=== PATIENT | female | born 1980 | race Hispanic/Latino ===

== ENCOUNTER 2018-09-11 09:21 | Outpatient (CLI) | payer MEDICARE | END 2018-09-11 09:22 | disposition home or self-care (01) | LOC: WOUND 09:21 → MERGE 09:21 → WOUND 09:22 | PROVIDERS: ATTEND Surgery | DX: E11.622 Type 2 diabetes mellitus with other skin ulcer (principal); L89.314 Pressure ulcer of right buttock, stage 4; L98.412 Non-pressure chronic ulcer of buttock with fat layer exposed; L89.152 Pressure ulcer of sacral region, stage 2; L98.491 Non-pressure chronic ulcer of skin of other sites limited to breakdown of skin; I10 Essential (primary) hypertension; G80.9 Cerebral palsy, unspecified; E66.9 Obesity, unspecified; Z68.29 Body mass index [BMI] 29.0-29.9, adult ==

== ENCOUNTER 2018-09-18 08:57 | Outpatient (CLI) | payer MEDICARE | END 2018-09-18 08:58 | disposition home or self-care (01) | LOC: WOUND 08:57 → MERGE 08:57 → WOUND 08:58 | PROVIDERS: ATTEND Surgery | DX: E11.622 Type 2 diabetes mellitus with other skin ulcer (principal); L89.314 Pressure ulcer of right buttock, stage 4; L98.412 Non-pressure chronic ulcer of buttock with fat layer exposed; L89.152 Pressure ulcer of sacral region, stage 2; L98.491 Non-pressure chronic ulcer of skin of other sites limited to breakdown of skin; I10 Essential (primary) hypertension; G80.9 Cerebral palsy, unspecified; E66.9 Obesity, unspecified; Z68.29 Body mass index [BMI] 29.0-29.9, adult ==

== ENCOUNTER 2018-09-25 09:13 | Outpatient (CLI) | payer MEDICARE | END 2018-09-25 09:14 | disposition home or self-care (01) | LOC: MERGE 09:13 → WOUND 09:13 | PROVIDERS: ATTEND Surgery | DX: E11.622 Type 2 diabetes mellitus with other skin ulcer (principal); L89.313 Pressure ulcer of right buttock, stage 3; L98.412 Non-pressure chronic ulcer of buttock with fat layer exposed; L89.152 Pressure ulcer of sacral region, stage 2; L98.492 Non-pressure chronic ulcer of skin of other sites with fat layer exposed; I10 Essential (primary) hypertension; G80.9 Cerebral palsy, unspecified | CPT/HCPCS: 97605; 97606 ==

== ENCOUNTER 2018-10-02 09:07 | Outpatient (CLI) | payer MEDICARE ==
[2018-10-02] MEDS ORDERED: SILVER NITRATE TP ONE ×2 (09:51→10:06)
[2018-10-02] MEDS ORDERED: DAKIN'S FULL STRENGTH TP ONE (10:06)
== END 2018-10-02 09:08 | disposition home or self-care (01) ==
LOC: WOUND 09:07 → MERGE 09:07 → WOUND 09:08
PROVIDERS: ATTEND Surgery
DX: E11.622 Type 2 diabetes mellitus with other skin ulcer (principal); L89.314 Pressure ulcer of right buttock, stage 4; L89.154 Pressure ulcer of sacral region, stage 4; L98.412 Non-pressure chronic ulcer of buttock with fat layer exposed; L98.492 Non-pressure chronic ulcer of skin of other sites with fat layer exposed; I10 Essential (primary) hypertension; G80.9 Cerebral palsy, unspecified
CPT/HCPCS: 87075; 87076; 87116; 87186; 97605

== ENCOUNTER 2018-10-09 09:17 | Outpatient (CLI) | payer MEDICARE ==
[2018-10-09] MEDS ORDERED: DAKIN'S FULL STRENGTH TP ONE (11:00)
== END 2018-10-09 09:18 | disposition home or self-care (01) ==
LOC: WOUND 09:17 → MERGE 09:17 → WOUND 09:18
PROVIDERS: ATTEND Surgery
DX: E11.622 Type 2 diabetes mellitus with other skin ulcer (principal); L89.152 Pressure ulcer of sacral region, stage 2; L98.492 Non-pressure chronic ulcer of skin of other sites with fat layer exposed; L89.314 Pressure ulcer of right buttock, stage 4; L98.411 Non-pressure chronic ulcer of buttock limited to breakdown of skin; I10 Essential (primary) hypertension; G80.9 Cerebral palsy, unspecified
CPT/HCPCS: 97605

== ENCOUNTER 2018-10-30 09:18 | Outpatient (CLI) | payer MEDICARE | END 2018-10-30 09:19 | disposition home or self-care (01) | LOC: WOUND 09:18 | PROVIDERS: ATTEND Surgery | DX: E11.622 Type 2 diabetes mellitus with other skin ulcer (principal); L89.314 Pressure ulcer of right buttock, stage 4; L98.412 Non-pressure chronic ulcer of buttock with fat layer exposed; L89.152 Pressure ulcer of sacral region, stage 2; L98.492 Non-pressure chronic ulcer of skin of other sites with fat layer exposed; I10 Essential (primary) hypertension; G80.9 Cerebral palsy, unspecified ==

== ENCOUNTER 2018-11-06 09:14 | Outpatient (CLI) | payer MEDICARE | END 2018-11-06 09:15 | disposition home or self-care (01) | LOC: WOUND 09:14 | PROVIDERS: ATTEND Surgery | DX: E11.622 Type 2 diabetes mellitus with other skin ulcer (principal); L89.314 Pressure ulcer of right buttock, stage 4; L98.412 Non-pressure chronic ulcer of buttock with fat layer exposed; L89.152 Pressure ulcer of sacral region, stage 2; L98.492 Non-pressure chronic ulcer of skin of other sites with fat layer exposed; I10 Essential (primary) hypertension; G80.9 Cerebral palsy, unspecified ==

== ENCOUNTER 2018-11-13 08:58 | Outpatient (CLI) | payer MEDICARE | END 2018-11-13 08:59 | disposition home or self-care (01) | LOC: WOUND 08:58 | PROVIDERS: ATTEND Surgery | DX: E11.622 Type 2 diabetes mellitus with other skin ulcer (principal); L89.314 Pressure ulcer of right buttock, stage 4; L98.412 Non-pressure chronic ulcer of buttock with fat layer exposed; L89.152 Pressure ulcer of sacral region, stage 2; L98.492 Non-pressure chronic ulcer of skin of other sites with fat layer exposed; I10 Essential (primary) hypertension; G80.9 Cerebral palsy, unspecified | CPT/HCPCS: 97605 ==

== ENCOUNTER 2019-01-12 07:38 | Day surgery (SDC) | payer MEDICARE ==
[2019-01-12] MEDS ORDERED: NACL 0.9% 1000 ML 1,000 ML IV SCH (10:45)
--- NOTE | 2019-01-12 10:59 | Anesthesia Day of Surgery ---
Anesthesia Day of Surgery - Day of Surgery Patient Examined: Yes Patient H&P Reviewed: Yes Patient is NPO: Yes Beta Blockers: Yes
--- NOTE | 2019-01-12 11:00 | Anesthesia Consultation ---
Anesthesia Consult and Med Hx - Airway Anesthetic Teeth Evaluation: Good ROM Head & Neck: Adequate Mental/Hyoid Distance: Adequate Mallampati Class: Class III Intubation Access Assessment: Good - Pulmonary Exam CTA: Yes - Cardiac Exam Cardiac Exam: No Murmur - Pre-Operative Health Status ASA Pre-Surgery Classification: ASA3 Proposed Anesthetic Plan: MAC - Pulmonary Hx Smoking: No Hx Asthma: No COPD: No Hx Pneumonia: No Hx Sleep Apnea: Yes (DX SLEEP APNEA , NO CPAP USE) - Cardiovascular System Hx Hypertension: Yes Hx Coronary Artery Disease: No Hx Heart Attack/AMI: No Hx Angina: No Hx Cardia Arrhythmia: Yes - Central Nervous System Hx Neuromuscular Disorder: Yes (h/o cerebral palsy and paraplegia Left.) Hx Seizures: No CVA: No Hx Back Pain: Yes Hx Psychiatric Problems: No - Endocrine Hx Renal Disease: Yes (colostomy (last year) and urostomy tube (over 10yrs)) Hx End Stage Renal Disease: No Hx Liver Disease: No Hx Insulin Dependent Diabetes: Yes Hx Non-Insulin Dependent Diabetes: No Hx Thyroid Disease: No - Hematic Hx Anemia: Yes - Other Systems Hx Alcohol Use: No Hx Cancer: No Hx Obesity: Yes
[2019-01-12] MEDS ORDERED: VERSED ONE (11:07)
[2019-01-12] MEDS ORDERED: DIPRIVAN 10 MG/ML IV ONE (11:07)
--- NOTE | 2019-01-12 11:26 | Short Stay Summary ---
Short Stay Documentation Date of service: 01/12/19 Narrative H&P: The patient presents for EGD and dilation due to dysphagia to solid food. - History Past Medical History: diabetes, other (spinal surgery, paraplegia) Past Surgical History: bowel surgery, Other (ileostomy and colostomy, spinal surgery) - Allergies and Medications Current Medications: Allergies amoxicillin trihydrate [From Augmentin] Adverse Reaction (Verified 10/19/18 08:09) Diarrhea potassium clavulanate [From Augmentin] Adverse Reaction (Verified 10/19/18 08:09) Diarrhea Home Medications Medication Instructions Recorded Confirmed Last Taken Type RX: Nortriptyline HCl [Pamelor] 75 mg PO DAILY 07/15/18 01/12/19 01/11/19 History RX: medroxyPROGESTERone ACETATE 150 mg IM QMONTH 07/15/18 01/12/19 07/15/18 09:00 History [Medroxyprogesterone Acetate] RX: Acetaminophen [Acetaminophen 650 mg PO Q4H PRN tablet 07/24/18 01/12/19 Unknown Rx TAB] RX: Fenofibrate 160 mg PO DAILY 10/17/18 01/12/19 01/11/19 History RX: Gabapentin [Neurontin] 100 mg PO DAILY 10/17/18 01/12/19 01/11/19 History RX: Insulin Detemir [Levemir VIAL] 33 unit SQ QAM 10/17/18 01/12/19 01/11/19 History RX: Insulin Detemir [Levemir VIAL] 40 unit SQ QHS 10/17/18 01/12/19 01/11/19 History RX: Losartan [Cozaar] 25 mg PO QDAY 10/17/18 01/12/19 01/11/19 History RX: metFORMIN [Glucophage] 800 mg PO BID 10/17/18 01/12/19 01/11/19 History Metoprolol 25 mg PO DAILY 01/12/19 01/12/19 01/11/19 History RX: Ferrous Sulfate [Feosol 325 MG 325 mg PO DAILY 01/12/19 01/12/19 01/11/19 History tab] Active Medications Sodium Chloride (Nacl 0.9% 1000 Ml) 1,000 mls @ 50 mls/hr IV DIRECT MORIAH Last Admin: 01/12/19 10:35 Dose: 50 mls/hr Documented by: - Physical exam General appearance: no acute distress, well-nourished, obese Integumentary: no rash, no growths, no abnormal pigmentation HEENT: Atraumatic, PERRLA, EOMI, Mucous membr. moist/pink Lungs: Clear to auscultation Breasts: deferred Heart: Regular rate, Normal S1, Normal S2, No murmurs Gastrointestinal: normoactive bowel sounds, no tenderness, no distended, no guarding, no organomegaly, no hepatomegaly, no splenomegaly, no obese, other (ileostomy in mid right abdomen, colostomy in LLQ) Rectal Exam: deferred Extremities: no ischemia, pulses intact, pulses symmetrical, No edema, normal temperature, normal color Neurological: Normal speech, Strength at 5/5 X4 ext, Normal tone, Sensation intact, Cranial nerves 3-12 NL, Other (non ambulatory) - Brief post op/procedure progress note Date of procedure: 01/12/19 Findings: see dictated report Estimated blood loss: none Pathology: none Condition: stable - Disposition Condition at discharge: Good Disposition: DC-01 TO HOME OR SELFCARE - Discharge Diagnoses (1) Dysphagia Status: Acute Short Stay Discharge Plan Activity: advance as tolerated Weight Bearing Status: Non-Weight Bearing
--- NOTE | 2019-01-12 11:40 | Operative Report ---
Operative Report Operative Report: Date of procedure: 01/12/2019 Procedure: Esophagogastroduodenoscopy with balloon dilation from 16-18 mm. Preprocedure diagnosis: Dysphagia to solid foods Post procedure diagnosis: Stricture at the esophagogastric junction. Retained gastric contents consistent with diabetic gastroparesis Endoscopist: Dr. Perry Anesthesia: Monitored anesthesia care per anesthesia department Medications: Propofol per anesthesia Estimated blood loss: Minimal After careful discussion of the nature and purpose of the procedure as well as details the technique risks benefits and alternatives consent was obtained. The patient was placed in the left lateral decubitus position and medicated per anesthesia. The tip of the Onco[employer]ex EQ 570 video scope was passed per orum under direct vision into the esophagus and advanced into the stomach and descending duodenum. The descending duodenum the duodenal bulb and pylorus were symmetrical and normal. The scope was withdrawn into the stomach and the stomach then gently insufflated with air. The antrum was normal. The stomach was further insufflated and the scope was then retroflexed and partially withdrawn. A moderate amount of solid food was present on the greater curvature of the stomach consistent with diabetic gastroparesis. Stomach was easily distensible and otherwise normal on forward and retroflexed views. The scope was then withdrawn in the forward position. The esophagogastric junction was at 35 cm.. A mild peptic stricture was present at the EG junction. Dilation was performed from 16-18 mm with a [id number] balloon. Minimal trauma was observed. The esophageal body was normal throughout. The procedure was was well tolerated and the patient was observed in recovery. Impressions: Peptic stricture, status post balloon dilation to 18 mm. Retained food in the stomach consistent with diabetic gastroparesis. No evidence of outl et obstruction or peptic ulcer disease. Plan: PPI therapy. Office follow-up in 3-4 months. Electronically signed: Addy Perry MD
[2019-01-12 12:19] VITALS: BP 132/83
--- NOTE | 2019-01-12 13:36 | Anesthesia Day of Surgery ---
Anesthesia Day of Surgery - Day of Surgery Patient Examined: Yes Patient H&P Reviewed: Yes Patient is NPO: Yes
== END 2019-01-12 12:25 | disposition home or self-care (01) ==
LOC: GIO 07:38
PROVIDERS: ATTEND Internal Medicine Gastroenterology
DX: K22.2 Esophageal obstruction (principal); R13.10 Dysphagia, unspecified; E11.9 Type 2 diabetes mellitus without complications; I10 Essential (primary) hypertension; E78.5 Hyperlipidemia, unspecified; G47.30 Sleep apnea, unspecified; E66.9 Obesity, unspecified; M19.90 Unspecified osteoarthritis, unspecified site; Z98.890 Other specified postprocedural states; Z88.6 Allergy status to analgesic agent; Z79.899 Other long term (current) drug therapy; Z79.4 Long term (current) use of insulin; Z79.84 Long term (current) use of oral hypoglycemic drugs; Z68.41 Body mass index [BMI] 40.0-44.9, adult; Z87.442 Personal history of urinary calculi; Z91.81 History of falling; Z80.8 Family history of malignant neoplasm of other organs or systems; Z83.3 Family history of diabetes mellitus; Z86.2 Personal history of diseases of the blood and blood-forming organs and certain disorders involving the immune mechanism; Z88.8 Allergy status to other drugs, medicaments and biological substances; Z82.49 Family history of ischemic heart disease and other diseases of the circulatory system
CPT/HCPCS: 43249; 82962; C1726; J2250; J2704; J7030

== ENCOUNTER 2020-08-10 14:55 | Inpatient (IN) | payer MEDICARE ==
[2020-08-10] MEDS ORDERED: SODIUM CHLORIDE 0.9% 500 ML 500 ML IV ONE (15:17)
--- NOTE | 2020-08-10 15:19 | Event Note ---
Date: 08/10/20 The patient was evaluated in the emergency department for symptoms described in the history of present illness. He/she was evaluated in the context of the global COVID-19 pandemic, which necessitated consideration that the patient might be at risk for infection with the virus that causes COVID-19. Institutional protocols and algorithms that pertain to the evaluation of patients at risk for COVID-19 are in a state of rapid change based on information released by regulatory bodies including the CDC and federal and state organizations. These policies and algorithms were followed during the patient's care in the emergency department. Please note that these policies, procedures and recommendations changed on a rapid basis. Medical screening note: 39-year-old female, history of infected sacral wound, unstageable sacral ulcer, spinal stenosis, cerebral palsy, diabetes, paraplegia, brought to the hospital by EMS with a complaint of possible sepsis. They report patient was hypotensive in the field with a blood pressure in the 80s. Patient has grown out Pseudomonas aeruginosa x2 in the past, as well as E. coli as per review of old wound cultures. Place patient on cardiac care nurse, obtain x-ray, EKG, urinalysis, sepsis labs, initiate IV fluid resuscitation.
[2020-08-10 16:19] LABS: Hematocrit 34.4 % (30.3-42.9); Hemoglobin 11.5 gm/dl (10.1-14.3); Mean Corpuscular HGB Conc 33 % (30-34); Mean Corpuscular Volume 92 fl (79-97); Red Blood Count 3.74 M/mm3 (3.65-5.03); Red Cell Distribution Width 19.9 % (13.2-15.2)
[2020-08-10 16:22] LABS: Bacteria,Urine 3+ /HPF (Negative); Bilirubin,Urine NEG (Negative); Blood,Urine NEG (Negative); Color,Urine Amber (Yellow); Mucus,Urine 2+ /HPF; Urobilinogen,Urine < 2.0 mg/dL (<2.0)
[2020-08-10 16:23] LABS: Platelet Count 160 K/mm3 (140-440)
[2020-08-10] MEDS ORDERED: cefTRIAXone/NS 2 GM/100 ML 2 GM/100 ML BAG IV ONE (16:34)
[2020-08-10] MEDS ORDERED: SODIUM CHLORIDE 0.9% 1000 ML 1,000 ML IV ONE (16:34)
--- NOTE | 2020-08-10 16:34 | XRay Report ---
CHEST 1 VIEW 08/10/2020 3:28 PM INDICATION / CLINICAL INFORMATION: weakness, sepsis. COMPARISON: None available. FINDINGS: SUPPORT DEVICES: The [employer] shunt tubing projects over the left chest wall. HEART / MEDIASTINUM: No significant abnormality. LUNGS / PLEURA: No significant pulmonary or pleural abnormality. No pneumothorax. ADDITIONAL FINDINGS: No significant additional findings. IMPRESSION: 1. No acute findings. Signer Name: Eliazar Grant MD Signed: 08/10/2020 4:30 PM Workstation Name: [id number]
[2020-08-10 16:40] LABS: Alanine Aminotransferase 8 units/L (7-56); Albumin 2.3 g/dL (3.9-5); Blood Urea Nitrogen 29 mg/dL (7-17); Calcium 8.3 mg/dL (8.4-10.2); Hemolysis Index 72
[2020-08-10 16:45] LABS: BUN/Creatinine Ratio 48
[2020-08-10 17:19] LABS: HDL Cholesterol 26 mg/dL (40-59); LDL Cholesterol,Direct TNR mg/dL (50-130)
[2020-08-10 17:28] LABS: Band Neutrophils # (Manual) 0.5 K/mm3; Basophils % (Manual) 0 % (0.0-1.8); Eosinophils % (Manual) 0 % (0.0-4.3); Total Cells Counted 100
[2020-08-10] MEDS ORDERED: INSULIN REGULAR, HUMAN 100 UNIT/ML 3ML VIAL IV ONE (17:33)
[2020-08-10] MEDS ORDERED: DEXTROSE 50% IN WATER (25GM) 50 ML SYRINGE IV ONE (17:33)
[2020-08-10] MEDS ORDERED: SODIUM POLYSTYRENE 15 GM/60 ML ORAL LIQD PO ONE (17:33)
[2020-08-10] MEDS ORDERED: SODIUM BICARB 8.4% 50 MEQ/50 ML SYRINGE IV ONE (17:33)
--- NOTE | 2020-08-10 17:33 | Emergency Department Report ---
ED General Adult HPI - General Chief complaint: Weakness Stated complaint: SEPSIS/HYPOTENSION Time Seen by Provider: 08/10/20 16:33 Source: EMS Mode of arrival: Stretcher Limitations: Altered Mental Status, Physical Limitation - History of Present Illness Initial comments: Patient is a 39-year-old female with a past medical history of cerebral palsy diabetes chronic paraplegia secondary to spinal stenosis and ankylosing spondylitis of the lumbosacral region who is presenting with some flat affect for the last 2 days. Mother states that she normally is somewhat talkative but now is just kind of lying very quiet and lethargic. There is been no nausea vomiting diarrhea. Mother states that it has been less output from her urostomy bag. Patient also has had some mild constipation but was given laxative from her home health nurse and she did have a bowel movement today. Home health nurse called the paramedics secondary to blood pressure 82/49. Patient was afebrile had a heart rate of 91. There is been no mention of any cough cold congestion or signs or symptoms of COVID-19. - Related Data Home Medications Medication Instructions Recorded Confirmed Last Taken Nortriptyline HCl [Pamelor] 75 mg PO DAILY 07/15/18 01/12/19 01/11/19 medroxyPROGESTERone ACETATE 150 mg IM QMONTH 07/15/18 01/12/19 07/15/18 09:00 [Medroxyprogesterone Acetate] Fenofibrate 160 mg PO DAILY 10/17/18 01/12/19 01/11/19 Gabapentin 100 mg PO DAILY 10/17/18 01/12/19 01/11/19 Insulin Detemir [Levemir VIAL] 33 unit SQ QAM 10/17/18 01/12/19 01/11/19 Insulin Detemir [Levemir VIAL] 40 unit SQ QHS 10/17/18 01/12/19 01/11/19 Losartan [Cozaar] 25 mg PO QDAY 10/17/18 01/12/19 01/11/19 metFORMIN [Glucophage] 800 mg PO BID 10/17/18 01/12/19 01/11/19 Ferrous Sulfate [Feosol 325 MG tab] 325 mg PO DAILY 01/12/19 01/12/19 01/11/19 Metoprolol 25 mg PO DAILY 01/12/19 01/12/19 01/11/19 Previous Rx's Medication Instructions Recorded Last Taken Type Acetaminophen [Acetaminophen TAB] 650 mg PO Q4H PRN tablet 07/24/18 Unknown Rx Allergies Allergy/AdvReac Type Severity Reaction Status Date / Time amoxicillin trihydrate AdvReac Diarrhea Verified 10/19/18 08:09 [From Augmentin] potassium clavulanate AdvReac Diarrhea Verified 10/19/18 08:09 [From Augmentin] ED Review of Systems ROS: Stated complaint: SEPSIS/HYPOTENSION Other details as noted in HPI Comment: All other systems reviewed and negative ED Past Medical Hx - Past Medical History Previous Medical History?: Yes Hx Hypertension: Yes Hx Heart Attack/AMI: No Hx Congestive Heart Failure: No Hx Diabetes: Yes Hx Liver Disease: No Hx Renal Disease: Yes (colostomy (last year) and urostomy tube (over 10yrs)) Hx Arthritis: Yes Hx Headaches / Migraines: Yes Hx Seizures: No Hx Kidney Stones: Yes Hx Asthma: No Hx COPD: No Hx HIV: No Additional medical history: Cerebral palsy, Numerous shunts and revisions, back pain, menangioma, hydrocephalus - Surgical History Additional Surgical History: 3 laminectomies, Shunts and revisions of shunts, Urostomy, colostomy, cervical fusion,decubitis right hip - Social History Smoking Status: Never Smoker - Medications Home Medications: Home Medications Medication Instructions Recorded Confirmed Last Taken Type Nortriptyline HCl [Pamelor] 75 mg PO DAILY 07/15/18 01/12/19 01/11/19 History medroxyPROGESTERone ACETATE 150 mg IM QMONTH 07/15/18 01/12/19 07/15/18 09:00 History [Medroxyprogesterone Acetate] Acetaminophen [Acetaminophen TAB] 650 mg PO Q4H PRN tablet 07/24/18 01/12/19 Unknown Rx Fenofibrate 160 mg PO DAILY 10/17/18 01/12/19 01/11/19 History Gabapentin 100 mg PO DAILY 10/17/18 01/12/19 01/11/19 History Insulin Detemir [Levemir VIAL] 33 unit SQ QAM 10/17/18 01/12/19 01/11/19 History Insulin Detemir [Levemir VIAL] 40 unit SQ QHS 10/17/18 01/12/19 01/11/19 History Losartan [Cozaar] 25 mg PO QDAY 10/17/18 01/12/19 01/11/19 History metFORMIN [Glucophage] 800 mg PO BID 10/17/18 01/12/19 01/11/19 History Ferrous Sulfate [Feosol 325 MG tab] 325 mg PO DAILY 01/12/19 01/12/19 01/11/19 History Metoprolol 25 mg PO DAILY 01/12/19 01/12/19 01/11/19 History ED Physical Exam - General Limitations: Altered Mental Status, Physical Limitation General appearance: alert, in no apparent distress - Head Head exam: Present: atraumatic, normocephalic - Eye Eye exam: Present: normal appearance, PERRL, EOMI - ENT ENT exam: Present: mucous membranes dry - Neck Neck exam: Present: normal inspection - Respiratory Respiratory exam: Present: normal lung sounds bilaterally. Absent: respiratory distress, wheezes, rales, rhonchi - Cardiovascular Cardiovascular Exam: Present: regular rate, normal rhythm. Absent: normal heart sounds, systolic murmur, diastolic murmur, rubs, gallop - GI/Abdominal GI/Abdominal exam: Present: soft, normal bowel sounds, other (Colostomy and urostomy bags are present). Absent: distended, tenderness, guarding, rebound - Extremities Exam Extremities exam: Present: normal inspection - Back Exam Back exam: Present: normal inspection - Neurological Exam Neurological exam: Present: alert, altered - Psychiatric Psychiatric exam: Present: flat affect - Skin Skin exam: Present: warm, dry, intact, normal color. Absent: rash ED Course Vital Signs 08/10/20 08/10/20 08/10/20 15:26 15:29 15:30 Pulse Rate 87 Respiratory 16 17 Rate Blood Pressure 94/44 Blood Pressure [Right] O2 Sat by Pulse 70 L 98 Oximetry 08/10/20 08/10/20 08/10/20 15:46 16:00 17:23 Pulse Rate 86 89 91 H Respiratory 16 17 18 Rate Blood Pressure 94/44 94/44 Blood Pressure 95/47 [Right] O2 Sat by Pulse 52 L 100 100 Oximetry ED Medical Decision Making - Lab Data Result diagrams: 08/10/20 16:00 08/10/20 16:00 Lab Results 08/10/20 08/10/20 08/10/20 Range/Units 15:29 16:00 16:00 WBC 9.6 (4.5-11.0) K/mm3 RBC 3.74 (3.65-5.03) M/mm3 Hgb 11.5 (10.1-14.3) gm/dl Hct 34.4 (30.3-42.9) % MCV 92 (79-97) fl MCH 31 (28-32) pg MCHC 33 (30-34) % RDW 19.9 H (13.2-15.2) % Plt Count 160 (140-440) K/mm3 Lymph % (Auto) Lining Finisher [place] % (Auto) Lining Finisher Eos % (Auto) Lining Finisher Baso % (Auto) Lining Finisher Lymph # (Auto) Lining Finisher [place] # (Auto) Lining Finisher Eos # (Auto) Lining Finisher Baso # (Auto) Lining Finisher Seg Neutrophils % Lining Finisher Seg Neutrophils # Lining Finisher APTT 35.8 (24.2-36.6) Sec. Sodium (137-145) mmol/L Potassium (3.6-5.0) mmol/L Chloride (98-107) mmol/L Carbon Dioxide (22-30) mmol/L Anion Gap mmol/L BUN (7-17) mg/dL Creatinine (0.6-1.2) mg/dL Estimated GFR ml/min BUN/Creatinine Ratio % Glucose (65-100) mg/dL Lactic Acid (0.7-2.0) mmol/L Calcium (8.4-10.2) mg/dL Magnesium (1.7-2.3) mg/dL Total Bilirubin (0.1-1.2) mg/dL AST (5-40) units/L ALT (7-56) units/L Alkaline Phosphatase (35-129) units/L Total Creatine Kinase (30-135) units/L Troponin T (0.00-0.029) ng/mL Total Protein (6.3-8.2) g/dL Albumin (3.9-5) g/dL Albumin/Globulin Ratio % Triglycerides (2-149) mg/dL Cholesterol (50-199) mg/dL LDL Cholesterol Direct HDL Cholesterol (40-59) mg/dL Cholesterol/HDL Ratio % Urine Color Steph (Yellow) Urine Turbidity Cloudy (Clear) Urine pH 5.0 (5.0-7.0) Ur Specific [place] 1.019 (1.003-1.030) Urine Protein 100 mg/dl (Negative) mg/dL Urine Glucose (UA) Neg (Negative) mg/dL Urine Ketones Neg (Negative) mg/dL Urine Blood Neg (Negative) Urine Nitrite Neg (Negative) Urine Bilirubin Neg (Negative) Urine Urobilinogen < 2.0 (<2.0) mg/dL Ur Leukocyte Esterase Tr (Negative) Urine WBC (Auto) 41.0 H (0.0-6.0) /HPF Urine RBC (Auto) 171.0 (0.0-6.0) /HPF U Epithel Cells (Auto) 1.0 (0-13.0) /HPF Urine Bacteria (Auto) 3+ (Negative) /HPF Urine Mucus 2+ /HPF Urine Yeast (Budding) 3+ /HPF 08/10/20 08/10/20 08/10/20 Range/Units 16:00 16:00 16:00 WBC (4.5-11.0) K/mm3 RBC (3.65-5.03) M/mm3 Hgb (10.1-14.3) gm/dl Hct (30.3-42.9) % MCV (79-97) fl MCH (28-32) pg MCHC (30-34) % RDW (13.2-15.2) % Plt Count (140-440) K/mm3 Lymph % (Auto) [place] % (Auto) Eos % (Auto) Baso % (Auto) Lymph # (Auto) [place] # (Auto) Eos # (Auto) Baso # (Auto) Seg Neutrophils % Seg Neutrophils # APTT (24.2-36.6) Sec. Sodium 141 (137-145) mmol/L Potassium 5.7 H (3.6-5.0) mmol/L Chloride 110.9 H (98-107) mmol/L Carbon Dioxide 12 L (22-30) mmol/L Anion Gap 24 mmol/L BUN 29 H (7-17) mg/dL Creatinine 0.6 (0.6-1.2) mg/dL Estimated GFR > 60 ml/min BUN/Creatinine Ratio 48 % Glucose 80 (65-100) mg/dL Lactic Acid 1.40 (0.7-2.0) mmol/L Calcium 8.3 L (8.4-10.2) mg/dL Magnesium 1.60 L (1.7-2.3) mg/dL Total Bilirubin 0.20 (0.1-1.2) mg/dL AST 23 (5-40) units/L ALT 8 (7-56) units/L Alkaline Phosphatase 105 (35-129) units/L Total Creatine Kinase 74 (30-135) units/L Troponin T 0.082 H (0.00-0.029) ng/mL Total Protein 5.4 L (6.3-8.2) g/dL Albumin 2.3 L (3.9-5) g/dL Albumin/Globulin Ratio 0.7 % Triglycerides 498 H (2-149) mg/dL Cholesterol 112 (50-199) mg/dL LDL Cholesterol Direct TNR HDL Cholesterol 26 L (40-59) mg/dL Cholesterol/HDL Ratio 4.30 % Urine Color (Yellow) Urine Turbidity (Clear) Urine pH (5.0-7.0) Ur Specific [place] (1.003-1.030) Urine Protein (Negative) mg/dL Urine Glucose (UA) (Negative) mg/dL Urine Ketones (Negative) mg/dL Urine Blood (Negative) Urine Nitrite (Negative) Urine Bilirubin (Negative) Urine Urobilinogen (<2.0) mg/dL Ur Leukocyte Esterase (Negative) Urine WBC (Auto) (0.0-6.0) /HPF Urine RBC (Auto) (0.0-6.0) /HPF U Epithel Cells (Auto) (0-13.0) /HPF Urine Bacteria (Auto) (Negative) /HPF Urine Mucus /HPF Urine Yeast (Budding) /HPF - Radiology Data Findings [facility] [address] [place] [address] XRay Report Signed Patient: RUTH DIXON MR#: [id number] : 1980 Acct:[id number] Age/Sex: 39 / F ADM Date: 08/10/20 Loc: ED Attending Dr: Ordering Physician: SUGAR DILLARD MD Date of Service: 08/10/20 Procedure(s): XR chest 1V ap Accession Number(s): [id number] cc: SUGAR DILLARD MD Fluoro Time In Minutes: CHEST 1 VIEW 08/10/2020 3:28 PM INDICATION / CLINICAL INFORMATION: weakness, sepsis. COMPARISON: None available. FINDINGS: SUPPORT DEVICES: The [employer] shunt tubing projects over the left chest wall. HEART / MEDIASTINUM: No significant abnormality. LUNGS / PLEURA: No significant pulmonary or pleural abnormality. No pneumothorax. ADDITIONAL FINDINGS: No significant additional findings. IMPRESSION: 1. No acute findings. Signer Name: Eliazar Grant MD Signed: 08/10/2020 4:30 PM Workstation Name: [id number] Transcribed By: TERRELL Dictated By: Eliazar Grant MD Electronically Authenticated By: Eliazar Grant MD Signed Date/Time: 08/10/20 1630 - Medical Decision Making Patient is a 39-year-old female with multiple medical problems including paraplegia secondary to his cerebral palsy and ankylosing spondylitis who is presenting with some decreased affect and weakness. Does appear to the patient has urinary tract infection she was started on sepsis protocol because of the lobe blood pressure. Patient was given a dose of Rocephin. Lactic acid is not greater than 4. Patient was started on IV hydration blood pressure is responding. Mother states her normal blood pressure is approximately 100 systolic. Patient did have some acute renal injury with hyperkalemia. Patient given a cocktail to reduce the patient's potassium. Patient will be admitted to the hospital service at this time. Critical Care Time: Yes (30) Critical care attestation.: If time is entered above; I have spent that time in minutes in the direct care of this critically ill patient, excluding procedure time. ED Disposition Clinical Impression: Sacral decubitus ulcer, stage IV, Hyperkalemia, Acute kidney injury, Dehydration, Sepsis secondary to UTI, Metabolic acidosis Disposition: 09 OP ADMIT IP TO THIS HOSP Is pt being admited?: Yes Does the pt Need Aspirin: No Condition: Stable Time of Disposition: 17:40
[2020-08-10 17:47] LABS: Platelet Estimate Consistent w Auto; RBC Morphology Normal
[2020-08-10] MEDS ORDERED: INSULIN REGULAR, HUMAN 100 UNITS/1 ML ONE (19:00)
[2020-08-10] MEDS ORDERED: INSULIN REGULAR, HUMAN 100 UNIT/ML 3ML VIAL ONE (19:11)
[2020-08-10] MEDS ORDERED: ONDANSETRON 4 MG/2 ML INJ IV PRN (23:13)
[2020-08-10] MEDS ORDERED: ACETAMINOPHEN 325 MG TAB PO PRN (23:13)
[2020-08-10] MEDS ORDERED: HYDROmorphone 1 MG/1 ML INJ IV PRN (23:13)
[2020-08-10] MEDS ORDERED: METOCLOPRAMIDE 10 MG/2 ML INJ IV PRN (23:13)
[2020-08-10] MEDS ORDERED: CALCIUM GLUCONATE 2,000 MG in SODIUM CHLORIDE 0.9% 100 ML IV ONE (23:14)
[2020-08-11] MEDS: SODIUM CHLORIDE 0.9% 1000 ML 1,000 ML IV SCH ×2 (00:46→11:19)
[2020-08-11] MEDS: FAMOTIDINE 20 MG/2 ML INJ IV SCH ×3 (02:23→22:00)
[2020-08-11 05:40] LABS: Hematocrit 30.4 % (30.3-42.9); Hemoglobin 9.6 gm/dl (10.1-14.3); Mean Corpuscular HGB Conc 32 % (30-34); Mean Corpuscular Volume 93 fl (79-97); Red Blood Count 3.26 M/mm3 (3.65-5.03)
[2020-08-11 05:42] LABS: Platelet Count 192 K/mm3 (140-440); Red Cell Distribution Width 20.3 % (13.2-15.2)
[2020-08-11 06:28] LABS: Alanine Aminotransferase 12 units/L (7-56); Albumin 2.1 g/dL (3.9-5); Blood Urea Nitrogen 26 mg/dL (7-17); Calcium 8.4 mg/dL (8.4-10.2); Hemolysis Index 199
[2020-08-11 06:32] LABS: BUN/Creatinine Ratio 87
--- NOTE | 2020-08-11 07:26 | History and Physical Report ---
History of Present Illness Date of examination: 08/10/20 Date of admission: 08/10/20 17:40 Chief complaint: Increasing lethargy 1 day History of present illness: 39-year-old female with a past medical history of cerebral palsy diabetes chronic paraplegia secondary to spinal stenosis and ankylosing spondylitis of the lumbosacral region who is presenting with some flat affect for the last 2 days. Mother states that she normally is somewhat talkative but now is just kind of lying very quiet and lethargic. There is been no nausea vomiting diarrhea. Mother states that it has been less output from her urostomy bag. Patient also has had some mild constipation but was given laxative from her home health nurse and she did have a bowel movement today. Home health nurse called the paramedics secondary to blood pressure 82/49. Patient was afebrile had a heart rate of 91. There is been no mention of any cough cold congestion or signs or symptoms of COVID-19. Past Medical History Previous Medical History?: Yes --Hypertension: Yes --Renal Disease: Yes (colostomy (last year) and urostomy tube (over 10yrs)) --Arthritis: Yes --Iddm Additional medical history: Cerebral palsy, Numerous shunts and revisions, back pain, menangioma, hydrocephalus - Surgical History Additional Surgical History: 3 laminectomies, Shunts and revisions of shunts, Urostomy, colostomy, cervical fusion,decubitis right hip - Social History Smoking Status: Never Smoker - Medications Home Medications: Home Medications Medication Instructions Recorded Confirmed Last Taken Type Nortriptyline HCl [Pamelor] 75 mg PO DAILY 07/15/18 01/12/19 01/11/19 History medroxyPROGESTERone ACETATE 150 mg IM QMONTH 07/15/18 01/12/19 07/15/18 09:00 History [Medroxyprogesterone Acetate] Acetaminophen [Acetaminophen TAB] 650 mg PO Q4H PRN tablet 07/24/18 01/12/19 Unknown Rx Fenofibrate 160 mg PO DAILY 10/17/18 01/12/19 01/11/19 History Gabapentin 100 mg PO DAILY 10/17/18 01/12/19 01/11/19 History Insulin Detemir [Levemir VIAL] 33 unit SQ QAM 10/17/18 01/12/19 01/11/19 History Insulin Detemir [Levemir VIAL] 40 unit SQ QHS 10/17/18 01/12/19 01/11/19 History Losartan [Cozaar] 25 mg PO QDAY 10/17/18 01/12/19 01/11/19 History metFORMIN [Glucophage] 800 mg PO BID 10/17/18 01/12/19 01/11/19 History Ferrous Sulfate [Feosol 325 MG tab] 325 mg PO DAILY 01/12/19 01/12/19 01/11/19 History Metoprolol 25 mg PO DAILY 01/12/19 01/12/19 01/11/19 History Review of Systems ROS: Stated complaint: HYPOTENSION Lethargy Other details as noted in HPI Comment: All other systems reviewed and negative - Medications and Allergies Allergies Allergy/AdvReac Type Severity Reaction Status Date / Time amoxicillin trihydrate AdvReac Diarrhea Verified 10/19/18 08:09 [From Augmentin] potassium clavulanate AdvReac Diarrhea Verified 10/19/18 08:09 [From Augmentin] Home Medications Medication Instructions Recorded Confirmed Last Taken Type Nortriptyline HCl [Pamelor] 75 mg PO DAILY 07/15/18 08/10/20 01/11/19 History medroxyPROGESTERone ACETATE 150 mg IM QMONTH 07/15/18 08/10/20 07/15/18 09:00 History [Medroxyprogesterone Acetate] Acetaminophen [Acetaminophen TAB] 650 mg PO Q4H PRN tablet 07/24/18 08/10/20 Unknown Rx Fenofibrate 160 mg PO DAILY 10/17/18 08/10/20 01/11/19 History Gabapentin 100 mg PO DAILY 10/17/18 08/10/20 01/11/19 History Losartan [Cozaar] 25 mg PO QDAY 10/17/18 08/10/20 01/11/19 History metFORMIN [Glucophage] 800 mg PO BID 10/17/18 08/10/20 01/11/19 History Ferrous Sulfate [Feosol 325 MG tab] 325 mg PO DAILY 01/12/19 08/10/20 01/11/19 History Metoprolol 25 mg PO DAILY 01/12/19 08/10/20 01/11/19 History Atenolol [Tenormin] 25 mg PO DAILY 08/10/20 08/10/20 Unknown History Lacosamide [Vimpat] 1 tab PO BID 08/10/20 08/10/20 Unknown History Lactulose 10 gram PO DAILY 08/10/20 08/10/20 Unknown History Active Meds: Active Medications Acetaminophen (Tylenol) 650 mg PO Q4H PRN PRN Reason: Pain MILD(1-3)/Fever >100.5/SOTO Famotidine (Pepcid) 20 mg IV BID [facility] Last Admin: 08/11/20 02:23 Dose: 20 mg Documented by: Hydromorphone HCl (Dilaudid) 0.5 mg IV Q3H PRN PRN Reason: Pain , Severe (7-10) Sodium Chloride (Nacl 0.9% 1000 Ml) 1,000 mls @ 100 mls/hr IV DIRECT MORIAH Last Admin: 08/11/20 00:46 Dose: 100 mls/hr Documented by: Ceftriaxone Sodium (Rocephin/Ns 2 Gm/100 Ml) 2 gm in 100 mls @ 200 mls/hr IV Q24HR [facility]; Protocol Metoclopramide HCl (Reglan) 10 mg IV Q6H PRN PRN Reason: Nausea And Vomiting Ondansetron HCl (Zofran) 4 mg IV Q8H PRN PRN Reason: Nausea And Vomiting Oxycodone/Acetaminophen (Percocet 5/325) 1 tab PO Q6H PRN PRN Reason: Pain, Moderate (4-6) Sodium Chloride (Sodium Chloride Flush Syringe 10 Ml) 10 ml IV BID [facility] Sodium Chloride (Sodium Chloride Flush Syringe 10 Ml) 10 ml IV PRN PRN PRN Reason: LINE FLUSH Exam - Constitutional Vitals: Temp Pulse Resp BP Pulse Ox 68.6 F L 85 14 153/64 93 08/11/20 06:47 08/11/20 06:47 08/11/20 06:47 08/11/20 06:47 08/11/20 06:47 HEART Score - HEART Score Troponin: Troponin T 0.082 ng/mL (0.00-0.029) H 08/10/20 16:00 Results - Labs CBC & Chem 7: 08/11/20 04:41 08/11/20 04:41 Labs: Laboratory Last Values WBC 11.4 K/mm3 (4.5-11.0) H 08/11/20 04:41 RBC 3.26 M/mm3 (3.65-5.03) L 08/11/20 04:41 Hgb 9.6 gm/dl (10.1-14.3) L 08/11/20 04:41 Hct 30.4 % (30.3-42.9) 08/11/20 04:41 MCV 93 fl (79-97) 08/11/20 04:41 MCH 29 pg (28-32) 08/11/20 04:41 MCHC 32 % (30-34) 08/11/20 04:41 RDW 20.3 % (13.2-15.2) H 08/11/20 04:41 Plt Count 192 K/mm3 (140-440) 08/11/20 04:41 Lymph % (Auto) Hand Button Splitter 08/11/20 04:41 [place] % (Auto) Hand Button Splitter 08/11/20 04:41 Eos % (Auto) Hand Button Splitter 08/11/20 04:41 Baso % (Auto) Hand Button Splitter 08/11/20 04:41 Lymph # (Auto) Hand Button Splitter 08/11/20 04:41 [place] # (Auto) Hand Button Splitter 08/11/20 04:41 Eos # (Auto) Hand Button Splitter 08/11/20 04:41 Baso # (Auto) Hand Button Splitter 08/11/20 04:41 Add Manual Diff Complete 08/10/20 16:00 Total Counted 100 08/10/20 16:00 Seg Neutrophils % Hand Button Splitter 08/11/20 04:41 Seg Neuts % (Manual) 72.0 % (40.0-70.0) H 08/10/20 16:00 Band Neutrophils % 5.0 % 08/10/20 16:00 Lymphocytes % (Manual) 11.0 % (13.4-35.0) L 08/10/20 16:00 Reactive Lymphs % (Man) 0 % 08/10/20 16:00 Monocytes % (Manual) 11.0 % (0.0-7.3) H 08/10/20 16:00 Eosinophils % (Manual) 0 % (0.0-4.3) 08/10/20 16:00 Basophils % (Manual) 0 % (0.0-1.8) 08/10/20 16:00 Metamyelocytes % 1.0 % 08/10/20 16:00 Myelocytes % 0 % 08/10/20 16:00 Promyelocytes % 0 % 08/10/20 16:00 Blast Cells % 0 % 08/10/20 16:00 Nucleated RBC % Not Reportable 08/10/20 16:00 Seg Neutrophils # Hand Button Splitter 08/11/20 04:41 Seg Neutrophils # Man 6.9 K/mm3 (1.8-7.7) 08/10/20 16:00 Band Neutrophils # 0.5 K/mm3 08/10/20 16:00 Lymphocytes # (Manual) 1.1 K/mm3 (1.2-5.4) L 08/10/20 16:00 Abs React Lymphs (Man) 0.0 K/mm3 08/10/20 16:00 Monocytes # (Manual) 1.1 K/mm3 (0.0-0.8) H 08/10/20 16:00 Eosinophils # (Manual) 0.0 K/mm3 (0.0-0.4) 08/10/20 16:00 Basophils # (Manual) 0.0 K/mm3 (0.0-0.1) 08/10/20 16:00 Metamyelocytes # 0.1 K/mm3 08/10/20 16:00 Myelocytes # 0.0 K/mm3 08/10/20 16:00 Promyelocytes # 0.0 K/mm3 08/10/20 16:00 Blast Cells # 0.0 K/mm3 08/10/20 16:00 WBC Morphology Not Reportable 08/10/20 16:00 Hypersegmented Neuts Not Reportable 08/10/20 16:00 Hyposegmented Neuts Not Reportable 08/10/20 16:00 Hypogranular Neuts Not Reportable 08/10/20 16:00 Smudge Cells Not Reportable 08/10/20 16:00 Toxic Granulation Not Reportable 08/10/20 16:00 Toxic Vacuolation Not Reportable 08/10/20 16:00 Dohle Bodies Not Reportable 08/10/20 16:00 Pelger-Huet Anomaly Not Reportable 08/10/20 16:00 [place] Rods Not Reportable 08/10/20 16:00 Platelet Estimate Consistent w auto 08/10/20 16:00 Clumped Platelets Not Reportable 08/10/20 16:00 Plt Clumps, EDTA Not Reportable 08/10/20 16:00 Large Platelets Not Reportable 08/10/20 16:00 Giant Platelets Not Reportable 08/10/20 16:00 Platelet Satelliting Not Reportable 08/10/20 16:00 Plt Morphology Comment Not Reportable 08/10/20 16:00 RBC Morphology Normal 08/10/20 16:00 Dimorphic RBCs Not Reportable 08/10/20 16:00 Polychromasia Not Reportable 08/10/20 16:00 Hypochromasia Not Reportable 08/10/20 16:00 Poikilocytosis Not Reportable 08/10/20 16:00 Anisocytosis Not Reportable 08/10/20 16:00 Microcytosis Not Reportable 08/10/20 16:00 Macrocytosis Not Reportable 08/10/20 16:00 Spherocytes Not Reportable 08/10/20 16:00 Pappenheimer Bodies Not Reportable 08/10/20 16:00 Sickle Cells Not Reportable 08/10/20 16:00 Target Cells Not Reportable 08/10/20 16:00 Tear Drop Cells Not Reportable 08/10/20 16:00 Ovalocytes Not Reportable 08/10/20 16:00 Helmet Cells Not Reportable 08/10/20 16:00 [place] Bodies Not Reportable 08/10/20 16:00 [place] Rings Not Reportable 08/10/20 16:00 Mobile Cells Not Reportable 08/10/20 16:00 Bite Cells Not Reportable 08/10/20 16:00 Crenated Cell Not Reportable 08/10/20 16:00 Elliptocytes Not Reportable 08/10/20 16:00 Acanthocytes (Spur) Not Reportable 08/10/20 16:00 Rouleaux Not Reportable 08/10/20 16:00 Hemoglobin C Crystals Not Reportable 08/10/20 16:00 Schistocytes Not Reportable 08/10/20 16:00 Malaria parasites Not Reportable 08/10/20 16:00 Daniel Bodies Not Reportable 08/10/20 16:00 Hem Pathologist Commnt No 08/10/20 16:00 APTT 35.8 Sec. (24.2-36.6) 08/10/20 16:00 Sodium 144 mmol/L (137-145) 08/11/20 04:41 Potassium 5.2 mmol/L (3.6-5.0) H 08/11/20 04:41 Chloride 112.9 mmol/L (98-107) H 08/11/20 04:41 Carbon Dioxide 14 mmol/L (22-30) L 08/11/20 04:41 Anion Gap 22 mmol/L 08/11/20 04:41 BUN 26 mg/dL (7-17) H 08/11/20 04:41 Creatinine 0.3 mg/dL (0.6-1.2) L 08/11/20 04:41 Estimated GFR > 60 ml/min 08/11/20 04:41 BUN/Creatinine Ratio 87 % 08/11/20 04:41 Glucose 80 mg/dL (65-100) 08/11/20 04:41 Hemoglobin A1c 4.7 % (4-6) 08/10/20 Unknown Lactic Acid 1.40 mmol/L (0.7-2.0) 08/10/20 16:00 Calcium 8.4 mg/dL (8.4-10.2) 08/11/20 04:41 Magnesium 1.60 mg/dL (1.7-2.3) L 08/10/20 16:00 Total Bilirubin < 0.20 mg/dL (0.1-1.2) 08/11/20 04:41 AST 32 units/L (5-40) 08/11/20 04:41 ALT 12 units/L (7-56) 08/11/20 04:41 Alkaline Phosphatase 99 units/L (35-129) 08/11/20 04:41 Total Creatine Kinase 74 units/L (30-135) 08/10/20 16:00 Troponin T 0.082 ng/mL (0.00-0.029) H 08/10/20 16:00 Total Protein 5.1 g/dL (6.3-8.2) L 08/11/20 04:41 Albumin 2.1 g/dL (3.9-5) L 08/11/20 04:41 Albumin/Globulin Ratio 0.7 % 08/11/20 04:41 Triglycerides 498 mg/dL (2-149) H 08/10/20 16:00 Cholesterol 112 mg/dL (50-199) 08/10/20 16:00 LDL Cholesterol Direct TNR 08/10/20 16:00 HDL Cholesterol 26 mg/dL (40-59) L 08/10/20 16:00 Cholesterol/HDL Ratio 4.30 % 08/10/20 16:00 Urine Color Steph (Yellow) 08/10/20 15: Urine Turbidity Cloudy (Clear) 08/10/20 15: Urine pH 5.0 (5.0-7.0) 08/10/20 15: Ur Specific [place] 1.019 (1.003-1.030) 08/10/20 15: Urine Protein 100 mg/dl mg/dL (Negative) 08/10/20 15: Urine Glucose (UA) Neg mg/dL (Negative) 08/10/20 15: Urine Ketones Neg mg/dL (Negative) 08/10/20 15: Urine Blood Neg (Negative) 08/10/20 15: Urine Nitrite Neg (Negative) 08/10/20 15: Urine Bilirubin Neg (Negative) 08/10/20 15: Urine Urobilinogen < 2.0 mg/dL (<2.0) 08/10/20 15: Ur Leukocyte Esterase Tr (Negative) 08/10/20 15: Urine WBC (Auto) 41.0 /HPF (0.0-6.0) H 08/10/20 15: Urine RBC (Auto) 171.0 /HPF (0.0-6.0) 08/10/20 15: U Epithel Cells (Auto) 1.0 /HPF (0-13.0) 08/10/20 15: Urine Bacteria (Auto) 3+ /HPF (Negative) 08/10/20 15: Urine Mucus 2+ /HPF 08/10/20 15:29 Urine Yeast (Budding) 3+ /HPF 08/10/20 15:29 Short CBC 08/10/20 08/11/20 Range/Units 16:00 04:41 WBC 9.6 11.4 H (4.5-11.0) K/mm3 Hgb 11.5 9.6 L (10.1-14.3) gm/dl Hct 34.4 30.4 (30.3-42.9) % Plt Count 160 192 (140-440) K/mm3 BMP 08/10/20 08/11/20 16:00 04:41 Sodium 141 144 Potassium 5.7 H 5.2 H Chloride 110.9 H 112.9 H Carbon Dioxide 12 L 14 L BUN 29 H 26 H Creatinine 0.6 0.3 L Glucose 80 80 Calcium 8.3 L 8.4 Cardiac Enzymes 08/10/20 08/10/20 Range/Units 16:00 16:00 Total Creatine Kinase 74 (30-135) units/L Troponin T 0.082 H (0.00-0.029) ng/mL Liver Function 08/10/20 08/11/20 Range/Units 16:00 04:41 Total Bilirubin 0.20 < 0.20 (0.1-1.2) mg/dL AST 23 32 (5-40) units/L ALT 8 12 (7-56) units/L Alkaline Phosphatase 105 99 (35-129) units/L Albumin 2.3 L 2.1 L (3.9-5) g/dL Urine 08/10/20 Range/Units 15:29 Urine Color Steph (Yellow) Urine pH 5.0 (5.0-7.0) Ur Specific [place] 1.019 (1.003-1.030) Urine Protein 100 mg/dl (Negative) mg/dL Urine Glucose (UA) Neg (Negative) mg/dL Microbiology: Microbiology 08/10/20 16:00 Peripheral/Venous Blood Culture - Preliminary Culture in Progress 08/10/20 16:00 Peripheral/Venous Blood Culture - Preliminary Culture in Progress Joseph/IV: IV Catheter Type [Left INT / Saline Lock Antecubital] Assessment and Plan Advance Directives: Yes (Full code) VTE prophylaxis?: Chemical Plan of care discussed with patient/family: Yes - Patient Problems (1) Hypoxia Current Visit: Yes Status: Acute Plan to address problem: Initial sats were low Improved with NC o2 (2) SIRS (systemic inflammatory response syndrome) Current Visit: Yes Status: Acute Plan to address problem: Pateint hypotensive UTI and Tachycardic (3) Hypotension Current Visit: Yes Status: Acute Plan to address problem: IV fluids for now (4) Hyperkalemia Current Visit: Yes Status: Acute Plan to address problem: Treated in ED with kayexalte IV calcium gluconate and Bicarb (5) UTI (urinary tract infection) Current Visit: Yes Status: Acute Qualifiers: Urinary tract infection type: acute cystitis Plan to address problem: IV Rocephin initiated pending cultures (6) Dehydration Current Visit: Yes Status: Acute Plan to address problem: IV fluids for now (7) HTN (hypertension) Current Visit: Yes Status: Chronic Qualifiers: Hypertension type: essential hypertension Qualified Code(s): I10 - [place] l (primary) hypertension Plan to address problem: Patient hypotensive now Hold antihypertensives for now (8) HLD (hyperlipidemia) Current Visit: No Status: Chronic Qualifiers: Hyperlipidemia type: mixed hyperlipidemia Qualified Code(s): E78.2 - Mixed hyperlipidemia Plan to address problem: Statins and fenofibrates for now (9) IDDM (insulin dependent diabetes mellitus) Current Visit: No Status: Chronic Plan to address problem: Coverage for now Check A1c (10) Sacral decubitus ulcer, stage IV Current Visit: Yes Status: Chronic Plan to address problem: Wound care (11) Cerebral palsy Current Visit: Yes Status: Chronic Qualifiers: Cerebral palsy type: unspecified type Qualified Code(s): G80.9 - Cerebral palsy, unspecified Plan to address problem: Supportive care (12) DVT prophylaxis Current Visit: No Status: Acute Plan to address problem: On Heparin and GI prophylaxis
[2020-08-11] MEDS: cefTRIAXone/NS 2 GM/100 ML 2 GM/100 ML BAG IV SCH (11:14)
[2020-08-11] MEDS: SODIUM HYPOCHLORITE, DAKIN'S 1/2 STRENGTH (0.25%) 473 ML TOPICAL SOLN TP SCH (11:15)
[2020-08-11] MEDS: HEPARIN 5,000 UNIT/1 ML VIAL SUB-Q SCH ×2 (11:17→22:00)
[2020-08-11] MEDS ORDERED: FLU VACC QUAD 2020-2021 (6 months +)/PF 60 0.5 ML SYRINGE IM ONE (12:00)
--- NOTE | 2020-08-11 12:52 | Progress Note ---
Assessment and Plan Assessment and plan: 39-year-old female with a past medical history of cerebral palsy diabetes chronic paraplegia secondary to spinal stenosis and ankylosing spondylitis of the lumbosacral region who is presenting with some flat affect for the last 2 days. Mother states that she normally is somewhat talkative but now is just kind of lying very quiet and lethargic. There is been no nausea vomiting diarrhea. Mother states that it has been less output from her urostomy bag. Patient also has had some mild constipation but was given laxative from her home health nurse and she did have a bowel movement today. Home health nurse called the paramedics secondary to blood pressure 82/49. Patient was afebrile had a heart rate of 91. There is been no mention of any cough cold congestion or signs or symptoms of COVID-19. 08/11: Doubt UTI this may have been a contaminated urine. Will recheck, patient appears that she was dehydrated on admission. Her blood pressures improved with hydration. She does have significant more improved urine output. I will resend a urine culture with a more clean approach. And also urinalysis. I discussed with the mother will monitor patient for next any 4 hours we will add anticough syrup to her medication regimen. Anticipate discharge in a day or 2. Will monitor potassium to ensure improvement. (1) Hypoxia Current Visit: Yes Status: Acute Plan to address problem: Initial sats were low Improved with NC o2 (2) SIRS (systemic inflammatory response syndrome) Current Visit: Yes Status: Acute Plan to address problem: Pateint hypotensive UTI and Tachycardic (3) Hypotension Current Visit: Yes Status: Acute Plan to address problem: IV fluids for now (4) Hyperkalemia Current Visit: Yes Status: Acute Plan to address problem: Treated in ED with kayexalte IV calcium gluconate and Bicarb (5) UTI (urinary tract infection) Current Visit: Yes Status: Acute Qualifiers: Urinary tract infection type: acute cystitis Plan to address problem: IV Rocephin initiated pending cultures (6) Dehydration Current Visit: Yes Status: Acute Plan to address problem: IV fluids for now (7) HTN (hypertension) Current Visit: Yes Status: Chronic Qualifiers: Hypertension type: essential hypertension Qualified Code(s): I10 - Essential (primary) hypertension Plan to address problem: Patient hypotensive now Hold antihypertensives for now (8) HLD (hyperlipidemia) Current Visit: No Status: Chronic Qualifiers: Hyperlipidemia type: mixed hyperlipidemia Qualified Code(s): E78.2 - Mixed hyperlipidemia Plan to address problem: Statins and fenofibrates for now (9) IDDM (insulin dependent diabetes mellitus) Current Visit: No Status: Chronic Plan to address problem: Coverage for now Check A1c (10) Sacral decubitus ulcer, stage IV Current Visit: Yes Status: Chronic Plan to address problem: Wound care (11) Cerebral palsy Current Visit: Yes Status: Chronic Qualifiers: Cerebral palsy type: unspecified type Qualified Code(s): G80.9 - Cerebral palsy, unspecified Plan to address problem: Supportive care (12) DVT prophylaxis Current Visit: No Status: Acute Plan to address problem: On Heparin and GI prophylaxis History Interval history: Patient seen and examined reports improvement in her symptoms. Except for cough that she states is ongoing. She was cleaning speech. Hospitalist Physical - Physical exam Narrative exam: VITAL SIGNS: Reviewed. GENERAL: The patient appears normally developed, Vital signs as documented. HEAD: No signs of head trauma. EYES: Pupils are equal. Extraocular motions intact. EARS: Hearing grossly intact. MOUTH: Oropharynx is normal. NECK: No adenopathy, no JVD. CHEST: Chest with clear breath sounds bilaterally. No wheezes, rales, or rhonchi. CARDIAC: Regular rate and rhythm. S1 and S2, without murmurs, gallops, or rubs. VASCULAR: No Edema. Peripheral pulses normal and equal in all extremities. ABDOMEN: Soft, non tender and non distended. Colostomy and urostomy bag. Bowel Sounds normal. MUSCULOSKELETAL: Good range of motion of all major joints. Extremities without clubbing, cyanosis or edema. NEUROLOGIC EXAM: Alert and oriented x 3 No focal sensory or strength deficits. Speech normal. Follows commands. PSYCHIATRIC: Mood normal. SKIN: detail exam as documented in skin assessment - Constitutional Vitals: Temp Pulse Resp BP Pulse Ox 98.5 F 97 H 18 145/62 99 08/11/20 11:15 08/11/20 11:15 08/11/20 11:15 08/11/20 11:15 08/11/20 11:15 HEART Score - HEART Score Troponin: Troponin T 0.082 ng/mL (0.00-0.029) H 08/10/20 16:00 Results - Labs CBC & Chem 7: 08/11/20 04:41 08/11/20 04:41 Labs: Laboratory Last Values WBC 11.4 K/mm3 (4.5-11.0) H 08/11/20 04:41 RBC 3.26 M/mm3 (3.65-5.03) L 08/11/20 04:41 Hgb 9.6 gm/dl (10.1-14.3) L 08/11/20 04:41 Hct 30.4 % (30.3-42.9) 08/11/20 04:41 MCV 93 fl (79-97) 08/11/20 04:41 MCH 29 pg (28-32) 08/11/20 04:41 MCHC 32 % (30-34) 08/11/20 04:41 RDW 20.3 % (13.2-15.2) H 08/11/20 04:41 Plt Count 192 K/mm3 (140-440) 08/11/20 04:41 Lymph % (Auto) Patrol Police Sergeant 08/11/20 04:41 [place] % (Auto) Patrol Police Sergeant 08/11/20 04:41 Eos % (Auto) Patrol Police Sergeant 08/11/20 04:41 Baso % (Auto) Patrol Police Sergeant 08/11/20 04:41 Lymph # (Auto) Patrol Police Sergeant 08/11/20 04:41 [place] # (Auto) Patrol Police Sergeant 08/11/20 04:41 Eos # (Auto) Patrol Police Sergeant 08/11/20 04:41 Baso # (Auto) Patrol Police Sergeant 08/11/20 04:41 Add Manual Diff Complete 08/10/20 16:00 Total Counted 100 08/10/20 16:00 Seg Neutrophils % Patrol Police Sergeant 08/11/20 04:41 Seg Neuts % (Manual) 72.0 % (40.0-70.0) H 08/10/20 16:00 Band Neutrophils % 5.0 % 08/10/20 16:00 Lymphocytes % (Manual) 11.0 % (13.4-35.0) L 08/10/20 16:00 Reactive Lymphs % (Man) 0 % 08/10/20 16:00 Monocytes % (Manual) 11.0 % (0.0-7.3) H 08/10/20 16:00 Eosinophils % (Manual) 0 % (0.0-4.3) 08/10/20 16:00 Basophils % (Manual) 0 % (0.0-1.8) 08/10/20 16:00 Metamyelocytes % 1.0 % 08/10/20 16:00 Myelocytes % 0 % 08/10/20 16:00 Promyelocytes % 0 % 08/10/20 16:00 Blast Cells % 0 % 08/10/20 16:00 Nucleated RBC % Not Reportable 08/10/20 16:00 Seg Neutrophils # Patrol Police Sergeant 08/11/20 04:41 Seg Neutrophils # Man 6.9 K/mm3 (1.8-7.7) 08/10/20 16:00 Band Neutrophils # 0.5 K/mm3 08/10/20 16:00 Lymphocytes # (Manual) 1.1 K/mm3 (1.2-5.4) L 08/10/20 16:00 Abs React Lymphs (Man) 0.0 K/mm3 08/10/20 16:00 Monocytes # (Manual) 1.1 K/mm3 (0.0-0.8) H 08/10/20 16:00 Eosinophils # (Manual) 0.0 K/mm3 (0.0-0.4) 08/10/20 16:00 Basophils # (Manual) 0.0 K/mm3 (0.0-0.1) 08/10/20 16:00 Metamyelocytes # 0.1 K/mm3 08/10/20 16:00 Myelocytes # 0.0 K/mm3 08/10/20 16:00 Promyelocytes # 0.0 K/mm3 08/10/20 16:00 Blast Cells # 0.0 K/mm3 08/10/20 16:00 WBC Morphology Not Reportable 08/10/20 16:00 Hypersegmented Neuts Not Reportable 08/10/20 16:00 Hyposegmented Neuts Not Reportable 08/10/20 16:00 Hypogranular Neuts Not Reportable 08/10/20 16:00 Smudge Cells Not Reportable 08/10/20 16:00 Toxic Granulation Not Reportable 08/10/20 16:00 Toxic Vacuolation Not Reportable 08/10/20 16:00 Dohle Bodies Not Reportable 08/10/20 16:00 Pelger-Huet Anomaly Not Reportable 08/10/20 16:00 [place] Rods Not Reportable 08/10/20 16:00 Platelet Estimate Consistent w auto 08/10/20 16:00 Clumped Platelets Not Reportable 08/10/20 16:00 Plt Clumps, EDTA Not Reportable 08/10/20 16:00 Large Platelets Not Reportable 08/10/20 16:00 Giant Platelets Not Reportable 08/10/20 16:00 Platelet Satelliting Not Reportable 08/10/20 16:00 Plt Morphology Comment Not Reportable 08/10/20 16:00 RBC Morphology Normal 08/10/20 16:00 Dimorphic RBCs Not Reportable 08/10/20 16:00 Polychromasia Not Reportable 08/10/20 16:00 Hypochromasia Not Reportable 08/10/20 16:00 Poikilocytosis Not Reportable 08/10/20 16:00 Anisocytosis Not Reportable 08/10/20 16:00 Microcytosis Not Reportable 08/10/20 16:00 Macrocytosis Not Reportable 08/10/20 16:00 Spherocytes Not Reportable 08/10/20 16:00 Pappenheimer Bodies Not Reportable 08/10/20 16:00 Sickle Cells Not Reportable 08/10/20 16:00 Target Cells Not Reportable 08/10/20 16:00 Tear Drop Cells Not Reportable 08/10/20 16:00 Ovalocytes Not Reportable 08/10/20 16:00 Helmet Cells Not Reportable 08/10/20 16:00 [place] Bodies Not Reportable 08/10/20 16:00 [place] Rings Not Reportable 08/10/20 16:00 [place] Cells Not Reportable 08/10/20 16:00 Bite Cells Not Reportable 08/10/20 16:00 Crenated Cell Not Reportable 08/10/20 16:00 Elliptocytes Not Reportable 08/10/20 16:00 Acanthocytes (Spur) Not Reportable 08/10/20 16:00 Rouleaux Not Reportable 08/10/20 16:00 Hemoglobin C Crystals Not Reportable 08/10/20 16:00 Schistocytes Not Reportable 08/10/20 16:00 Malaria parasites Not Reportable 08/10/20 16:00 Daniel Bodies Not Reportable 08/10/20 16:00 Hem Pathologist Commnt No 08/10/20 16:00 APTT 35.8 Sec. (24.2-36.6) 08/10/20 16:00 Sodium 144 mmol/L (137-145) 08/11/20 04:41 Potassium 5.2 mmol/L (3.6-5.0) H 08/11/20 04:41 Chloride 112.9 mmol/L (98-107) H 08/11/20 04:41 Carbon Dioxide 14 mmol/L (22-30) L 08/11/20 04:41 Anion Gap 22 mmol/L 08/11/20 04:41 BUN 26 mg/dL (7-17) H 08/11/20 04:41 Creatinine 0.3 mg/dL (0.6-1.2) L 08/11/20 04:41 Estimated GFR > 60 ml/min 08/11/20 04:41 BUN/Creatinine Ratio 87 % 08/11/20 04:41 Glucose 80 mg/dL (65-100) 08/11/20 04:41 POC Glucose 66 mg/dL (70-105) L 08/11/20 10:09 Hemoglobin A1c 4.7 % (4-6) 08/10/20 Unknown Lactic Acid 1.40 mmol/L (0.7-2.0) 08/10/20 16:00 Calcium 8.4 mg/dL (8.4-10.2) 08/11/20 04:41 Magnesium 1.60 mg/dL (1.7-2.3) L 08/10/20 16:00 Total Bilirubin < 0.20 mg/dL (0.1-1.2) 08/11/20 04:41 AST 32 units/L (5-40) 08/11/20 04:41 ALT 12 units/L (7-56) 08/11/20 04:41 Alkaline Phosphatase 99 units/L (35-129) 08/11/20 04:41 Total Creatine Kinase 74 units/L (30-135) 08/10/20 16:00 Troponin T 0.082 ng/mL (0.00-0.029) H 08/10/20 16:00 Total Protein 5.1 g/dL (6.3-8.2) L 08/11/20 04:41 Albumin 2.1 g/dL (3.9-5) L 08/11/20 04:41 Albumin/Globulin Ratio 0.7 % 08/11/20 04:41 Triglycerides 498 mg/dL (2-149) H 08/10/20 16:00 Cholesterol 112 mg/dL (50-199) 08/10/20 16:00 LDL Cholesterol Direct TNR 08/10/20 16:00 HDL Cholesterol 26 mg/dL (40-59) L 08/10/20 16:00 Cholesterol/HDL Ratio 4.30 % 08/10/20 16:00 Urine Color Steph (Yellow) 08/10/20 15:29 Urine Turbidity Cloudy (Clear) 08/10/20 15: Urine pH 5.0 (5.0-7.0) 08/10/20 15: Ur Specific [place] 1.019 (1.003-1.030) 08/10/20 15: Urine Protein 100 mg/dl mg/dL (Negative) 08/10/20 15:29 Urine Glucose (UA) Neg mg/dL (Negative) 08/10/20 15: Urine Ketones Neg mg/dL (Negative) 08/10/20 15: Urine Blood Neg (Negative) 08/10/20 15:29 Urine Nitrite Neg (Negative) 08/10/20 15:29 Urine Bilirubin Neg (Negative) 08/10/20 15: Urine Urobilinogen < 2.0 mg/dL (<2.0) 08/10/20 15:29 Ur Leukocyte Esterase Tr (Negative) 08/10/20 15:29 Urine WBC (Auto) 41.0 /HPF (0.0-6.0) H 08/10/20 15:29 Urine RBC (Auto) 171.0 /HPF (0.0-6.0) 08/10/20 15:29 U Epithel Cells (Auto) 1.0 /HPF (0-13.0) 08/10/20 15:29 Urine Bacteria (Auto) 3+ /HPF (Negative) 08/10/20 15: Urine Mucus 2+ /HPF 08/10/20 15:29 Urine Yeast (Budding) 3+ /HPF 08/10/20 15:29 Microbiology: Microbiology 08/10/20 16:00 Peripheral/Venous Blood Culture - Preliminary Culture in Progress 08/10/20 16:00 Peripheral/Venous Blood Culture - Preliminary Culture in Progress Joseph/IV: Voiding Method Nephrostomy (Left) IV Catheter Type [Left INT / Saline Lock Antecubital] Active Medications - Current Medications Current Medications: Generic Name Dose Route Start Last Admin Trade Name Freq PRN Reason Stop Dose Admin Acetaminophen 650 mg 08/10/20 23:13 Tylenol PO Q4H PRN Pain MILD(1-3)/Fever >100.5/SOTO Famotidine 20 mg 08/10/20 23:45 08/11/20 11:19 Pepcid IV 20 mg BID MORIAH Administration Heparin Sodium (Porcine) 5,000 unit 08/11/20 10:00 08/11/20 11:17 Heparin SUB-Q 5,000 unit Q12HR MORIAH Administration Hydromorphone HCl 0.5 mg 08/10/20 23:13 08/11/20 11:20 Dilaudid IV 0.5 mg Q3H PRN Administration Pain , Severe (7-10) Sodium Chloride 1,000 mls @ 100 mls/hr 08/10/20 23:15 08/11/20 11:19 Nacl 0.9% 1000 Ml IV 100 mls/hr DIRECT MORIAH Administration Ceftriaxone Sodium 2 gm in 100 mls @ 200 mls/hr 08/11/20 10:00 08/11/20 11:14 Rocephin/Ns 2 Gm/100 Ml IV 200 mls/hr Q24HR MORIAH Administration Protocol Metoclopramide HCl 10 mg 08/10/20 23:13 Reglan IV Q6H PRN Nausea And Vomiting Ondansetron HCl 4 mg 08/10/20 23:13 Zofran IV Q8H PRN Nausea And Vomiting Oxycodone/Acetaminophen 1 tab 08/10/20 23:13 Percocet 5/325 PO Q6H PRN Pain, Moderate (4-6) Sodium Chloride 10 ml 08/11/20 10:00 08/11/20 11:18 Sodium Chloride Flush Syringe 10 Ml IV 10 ml BID MORIAH Administration Sodium Chloride 10 ml 08/10/20 23:13 Sodium Chloride Flush Syringe 10 Ml IV PRN PRN LINE FLUSH Sodium Hypochlorite 1 applic 08/11/20 10:00 08/11/20 11:15 Dakin's Half Strength TP 1 applic BID MORIAH Administration Nutrition/Malnutrition Assess - Dietary Evaluation Nutrition/Malnutrition Findings: Nutrition Notes Start: 08/11/20 11:57 Freq: Status: Active Protocol: Document 08/11/20 11:57 AB (Rec: 08/11/20 12:03 AB [id number]) Co-Sign 08/11/20 11:57 MK Nutrition Notes 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 No diet order, per chart. RN stated that there is no diet order d/ t waiting for speech eval. Nutrition Intervention Follow-Up By: 08/14/20 Additional Comments F/U for full assessment and need for ONS/Michael
[2020-08-11] MEDS ORDERED: guaiFENesin DM 200/20 MG ORAL LIQD 10 ML PO PRN (13:00)
[2020-08-11] MEDS: MEGESTROL 400 MG/10 ML ORAL LIQD PO SCH (13:40)
[2020-08-11 21:38] LABS: Bacteria,Urine 2+ /HPF (Negative); Bilirubin,Urine NEG (Negative); Blood,Urine SM (Negative); Color,Urine Yellow (Yellow); Mucus,Urine 2+ /HPF; Protein,Urine <15 mg/dL mg/dL (Negative); Urobilinogen,Urine < 2.0 mg/dL (<2.0)
[2020-08-12] MEDS: HEPARIN 5,000 UNIT/1 ML VIAL SUB-Q SCH ×2 (10:18→22:57)
[2020-08-12] MEDS: MEGESTROL 400 MG/10 ML ORAL LIQD PO SCH (10:19)
[2020-08-12] MEDS: FAMOTIDINE 20 MG/2 ML INJ IV SCH ×3 (10:19→22:57)
[2020-08-12] MEDS: cefTRIAXone/NS 2 GM/100 ML 2 GM/100 ML BAG IV SCH ×2 (10:20→11:54)
[2020-08-12] MEDS: SODIUM HYPOCHLORITE, DAKIN'S 1/2 STRENGTH (0.25%) 473 ML TOPICAL SOLN TP SCH ×2 (10:21→22:59)
--- NOTE | 2020-08-12 12:30 | Progress Note ---
Assessment and Plan Assessment and plan: 39-year-old female with a past medical history of cerebral palsy diabetes chronic paraplegia secondary to spinal stenosis and ankylosing spondylitis of the lumbosacral region who is presenting with some flat affect for the last 2 days. Mother states that she normally is somewhat talkative but now is just kind of lying very quiet and lethargic. There is been no nausea vomiting diarrhea. Mother states that it has been less output from her urostomy bag. Patient also has had some mild constipation but was given laxative from her home health nurse and she did have a bowel movement today. Home health nurse called the paramedics secondary to blood pressure 82/49. Patient was afebrile had a heart rate of 91. There is been no mention of any cough cold congestion or signs or symptoms of COVID-19. 08/11: Doubt UTI this may have been a contaminated urine. Will recheck, patient appears that she was dehydrated on admission. Her blood pressures improved with hydration. She does have significant more improved urine output. I will resend a urine culture with a more clean approach. And also urinalysis. I discussed with the mother will monitor patient for next any 4 hours we will add anticough syrup to her medication regimen. Anticipate discharge in a day or 2. Will monitor potassium to ensure improvement. 08/12: Continue supportive care clinically improving awaiting speech evaluation bedside speech evaluation will be done by nursing staff to start on pured diet. Following discussion with the mother put a consult to Dr. Fung for port placement as patient has had difficult stick and recurrent dehydration was recently hospitalized at [facility] also. Mom is prefers to Dr. Antonieta Leon and Dr Nicolette jamison. Continue antibiotics were changed to p.o. While awaiting c ultures (1) Hypoxia Current Visit: Yes Status: Acute Plan to address problem: Initial sats were low Improved with NC o2 (2) SIRS (systemic inflammatory response syndrome) Current Visit: Yes Status: Acute Plan to address problem: Pateint hypotensive UTI and Tachycardic (3) Hypotension Current Visit: Yes Status: Acute Plan to address problem: IV fluids for now (4) Hyperkalemia Current Visit: Yes Status: Acute Plan to address problem: Treated in ED with kayexalte IV calcium gluconate and Bicarb (5) UTI (urinary tract infection) Current Visit: Yes Status: Acute Qualifiers: Urinary tract infection type: acute cystitis Plan to address problem: IV Rocephin initiated pending cultures (6) Dehydration Current Visit: Yes Status: Acute Plan to address problem: IV fluids for now (7) HTN (hypertension) Current Visit: Yes Status: Chronic Qualifiers: Hypertension type: essential hypertension Qualified Code(s): I10 - Essential (primary) hypertension Plan to address problem: Patient hypotensive now Hold antihypertensives for now (8) HLD (hyperlipidemia) Current Visit: No Status: Chronic Qualifiers: Hyperlipidemia type: mixed hyperlipidemia Qualified Code(s): E78.2 - Mixed hyperlipidemia Plan to address problem: Statins and fenofibrates for now (9) IDDM (insulin dependent diabetes mellitus) Current Visit: No Status: Chronic Plan to address problem: Coverage for now Check A1c (10) Sacral decubitus ulcer, stage IV Current Visit: Yes Status: Chronic Plan to address problem: Wound care (11) Cerebral palsy Current Visit: Yes Status: Chronic Qualifiers: Cerebral palsy type: unspecified type Qualified Code(s): G80.9 - Cerebral palsy, unspecified Plan to address problem: Supportive care (12) DVT prophylaxis Current Visit: No Status: Acute Plan to address problem: On Heparin and GI prophylaxis History Interval history: Patient seen and examined reports improvement in her symptoms. No new compl aints today. Nursing staff reports could not get access. I did speak with the mom who states that for the past 1 month the patient has been having some forgetfulness more than usual she is currently being worked up by neurology and has a planned MRI on Friday. There have also been talking about access she did have picklines in the past but did get infected. Hospitalist Physical - Physical exam Narrative exam: VITAL SIGNS: Reviewed. GENERAL: The patient appears normally developed, developmental delay vital signs as documented. HEAD: No signs of head trauma. EYES: Pupils are equal. Extraocular motions intact. EARS: Hearing grossly intact. MOUTH: Oropharynx is normal. NECK: No adenopathy, no JVD. CHEST: Chest with clear breath sounds bilaterally. No wheezes, rales, or rhonchi. CARDIAC: Regular rate and rhythm. S1 and S2, without murmurs, gallops, or rubs. VASCULAR: No Edema. Peripheral pulses normal and equal in all extremities. ABDOMEN: Soft, non tender and non distended. Colostomy and urostomy bag. Bowel Sounds normal. MUSCULOSKELETAL: Good range of motion of all major joints. Extremities without clubbing, cyanosis or edema. NEUROLOGIC EXAM: Alert and oriented x 3 No focal sensory or strength deficits. Speech normal. Follows commands. PSYCHIATRIC: Mood normal. SKIN: detail exam as documented in skin assessment - Constitutional Vitals: Temp Pulse Resp BP Pulse Ox 97.6 F 103 H 14 119/61 99 08/12/20 05:56 08/12/20 05:56 08/12/20 05:56 08/12/20 05:56 08/12/20 05:56 HEART Score - HEART Score Troponin: Troponin T 0.082 ng/mL (0.00-0.029) H 08/10/20 16:00 Results - Labs CBC & Chem 7: 08/11/20 04:41 08/11/20 04:41 Labs: Laboratory Last Values WBC 11.4 K/mm3 (4.5-11.0) H 08/11/20 04:41 RBC 3.26 M/mm3 (3.65-5.03) L 08/11/20 04:41 Hgb 9.6 gm/dl (10.1-14.3) L 08/11/20 04:41 Hct 30.4 % (30.3-42.9) 08/11/20 04:41 MCV 93 fl (79-97) 08/11/20 04:41 MCH 29 pg (28-32) 08/11/20 04:41 MCHC 32 % (30-34) 08/11/20 04:41 RDW 20.3 % (13.2-15.2) H 08/11/20 04:41 Plt Count 192 K/mm3 (140-440) 08/11/20 04:41 Lymph % (Auto) Honey Blender 08/11/20 04:41 Archuleta % (Auto) Honey Blender 08/11/20 04:41 Eos % (Auto) Honey Blender 08/11/20 04:41 Baso % (Auto) Honey Blender 08/11/20 04:41 Lymph # (Auto) Honey Blender 08/11/20 04:41 Archuleta # (Auto) Honey Blender 08/11/20 04:41 Eos # (Auto) Honey Blender 08/11/20 04:41 Baso # (Auto) Honey Blender 08/11/20 04:41 Add Manual Diff Complete 08/10/20 16:00 Total Counted 100 08/10/20 16:00 Seg Neutrophils % Honey Blender 08/11/20 04:41 Seg Neuts % (Manual) 72.0 % (40.0-70.0) H 08/10/20 16:00 Band Neutrophils % 5.0 % 08/10/20 16:00 Lymphocytes % (Manual) 11.0 % (13.4-35.0) L 08/10/20 16:00 Reactive Lymphs % (Man) 0 % 08/10/20 16:00 Monocytes % (Manual) 11.0 % (0.0-7.3) H 08/10/20 16:00 Eosinophils % (Manual) 0 % (0.0-4.3) 08/10/20 16:00 Basophils % (Manual) 0 % (0.0-1.8) 08/10/20 16:00 Metamyelocytes % 1.0 % 08/10/20 16:00 Myelocytes % 0 % 08/10/20 16:00 Promyelocytes % 0 % 08/10/20 16:00 Blast Cells % 0 % 08/10/20 16:00 Nucleated RBC % Not Reportable 08/10/20 16:00 Seg Neutrophils # Honey Blender 08/11/20 04:41 Seg Neutrophils # Man 6.9 K/mm3 (1.8-7.7) 08/10/20 16:00 Band Neutrophils # 0.5 K/mm3 08/10/20 16:00 Lymphocytes # (Manual) 1.1 K/mm3 (1.2-5.4) L 08/10/20 16:00 Abs React Lymphs (Man) 0.0 K/mm3 08/10/20 16:00 Monocytes # (Manual) 1.1 K/mm3 (0.0-0.8) H 08/10/20 16:00 Eosinophils # (Manual) 0.0 K/mm3 (0.0-0.4) 08/10/20 16:00 Basophils # (Manual) 0.0 K/mm3 (0.0-0.1) 08/10/20 16:00 Metamyelocytes # 0.1 K/mm3 08/10/20 16:00 Myelocytes # 0.0 K/mm3 08/10/20 16:00 Promyelocytes # 0.0 K/mm3 08/10/20 16:00 Blast Cells # 0.0 K/mm3 08/10/20 16:00 WBC Morphology Not Reportable 08/10/20 16:00 Hypersegmented Neuts Not Reportable 08/10/20 16:00 Hyposegmented Neuts Not Reportable 08/10/20 16:00 Hypogranular Neuts Not Reportable 08/10/20 16:00 Smudge Cells Not Reportable 08/10/20 16:00 Toxic Granulation Not Reportable 08/10/20 16:00 Toxic Vacuolation Not Reportable 08/10/20 16:00 Dohle Bodies Not Reportable 08/10/20 16:00 Pelger-Huet Anomaly Not Reportable 08/10/20 16:00 Israel Rods Not Reportable 08/10/20 16:00 Platelet Estimate Consistent w auto 08/10/20 16:00 Clumped Platelets Not Reportable 08/10/20 16:00 Plt Clumps, EDTA Not Reportable 08/10/20 16:00 Large Platelets Not Reportable 08/10/20 16:00 Giant Platelets Not Reportable 08/10/20 16:00 Platelet Satelliting Not Reportable 08/10/20 16:00 Plt Morphology Comment Not Reportable 08/10/20 16:00 RBC Morphology Normal 08/10/20 16:00 Dimorphic RBCs Not Reportable 08/10/20 16:00 Polychromasia Not Reportable 08/10/20 16:00 Hypochromasia Not Reportable 08/10/20 16:00 Poikilocytosis Not Reportable 08/10/20 16:00 Anisocytosis Not Reportable 08/10/20 16:00 Microcytosis Not Reportable 08/10/20 16:00 Macrocytosis Not Reportable 08/10/20 16:00 Spherocytes Not Reportable 08/10/20 16:00 Pappenheimer Bodies Not Reportable 08/10/20 16:00 Sickle Cells Not Reportable 08/10/20 16:00 Target Cells Not Reportable 08/10/20 16:00 Tear Drop Cells Not Reportable 08/10/20 16:00 Ovalocytes Not Reportable 08/10/20 16:00 Helmet Cells Not Reportable 08/10/20 16:00 Leonard-Crete Bodies Not Reportable 08/10/20 16:00 Alba Rings Not Reportable 08/10/20 16:00 Highland Cells Not Reportable 08/10/20 16:00 Bite Cells Not Reportable 08/10/20 16:00 Crenated Cell Not Reportable 08/10/20 16:00 Elliptocytes Not Reportable 08/10/20 16:00 Acanthocytes (Spur) Not Reportable 08/10/20 16:00 Rouleaux Not Reportable 08/10/20 16:00 Hemoglobin C Crystals Not Reportable 08/10/20 16:00 Schistocytes Not Reportable 08/10/20 16:00 Malaria parasites Not Reportable 08/10/20 16:00 Daniel Bodies Not Reportable 08/10/20 16:00 Hem Pathologist Commnt No 08/10/20 16:00 APTT 35.8 Sec. (24.2-36.6) 08/10/20 16:00 Sodium 144 mmol/L (137-145) 08/11/20 04:41 Potassium 5.2 mmol/L (3.6-5.0) H 08/11/20 04:41 Chloride 112.9 mmol/L (98-107) H 08/11/20 04:41 Carbon Dioxide 14 mmol/L (22-30) L 08/11/20 04:41 Anion Gap 22 mmol/L 08/11/20 04:41 BUN 26 mg/dL (7-17) H 08/11/20 04:41 Creatinine 0.3 mg/dL (0.6-1.2) L 08/11/20 04:41 Estimated GFR > 60 ml/min 08/11/20 04:41 BUN/Creatinine Ratio 87 % 08/11/20 04:41 Glucose 80 mg/dL (65-100) 08/11/20 04:41 POC Glucose 71 mg/dL (70-105) 08/11/20 18:31 Hemoglobin A1c 4.7 % (4-6) 08/10/20 Unknown Lactic Acid 1.40 mmol/L (0.7-2.0) 08/10/20 16:00 Calcium 8.4 mg/dL (8.4-10.2) 08/11/20 04:41 Magnesium 1.60 mg/dL (1.7-2.3) L 08/10/20 16:00 Total Bilirubin < 0.20 mg/dL (0.1-1.2) 08/11/20 04:41 AST 32 units/L (5-40) 08/11/20 04:41 ALT 12 units/L (7-56) 08/11/20 04:41 Alkaline Phosphatase 99 units/L (35-129) 08/11/20 04:41 Total Creatine Kinase 74 units/L (30-135) 08/10/20 16:00 Troponin T 0.082 ng/mL (0.00-0.029) H 08/10/20 16:00 Total Protein 5.1 g/dL (6.3-8.2) L 08/11/20 04:41 Albumin 2.1 g/dL (3.9-5) L 08/11/20 04:41 Albumin/Globulin Ratio 0.7 % 08/11/20 04:41 Triglycerides 498 mg/dL (2-149) H 08/10/20 16:00 Cholesterol 112 mg/dL (50-199) 08/10/20 16:00 LDL Cholesterol Direct TNR 08/10/20 16:00 HDL Cholesterol 26 mg/dL (40-59) L 08/10/20 16:00 Cholesterol/HDL Ratio 4.30 % 08/10/20 16:00 Urine Color Yellow (Yellow) 08/11/20 19:04 Urine Turbidity Slightly-cloudy (Clear) 08/11/20 19:04 Urine pH 5.0 (5.0-7.0) 08/11/20 19:04 Ur Specific Cicero 1.012 (1.003-1.030) 08/11/20 19:04 Urine Protein <15 mg/dl mg/dL (Negative) 08/11/20 19:04 Urine Glucose (UA) Neg mg/dL (Negative) 08/11/20 19:04 Urine Ketones Tr mg/dL (Negative) 08/11/20 19:04 Urine Blood Sm (Negative) 08/11/20 19:04 Urine Nitrite Pos (Negative) 08/11/20 19:04 Urine Bilirubin Neg (Negative) 08/11/20 19:04 Urine Urobilinogen < 2.0 mg/dL (<2.0) 08/11/20 19:04 Ur Leukocyte Esterase Neg (Negative) 08/11/20 19:04 Urine WBC (Auto) 36.0 /HPF (0.0-6.0) H 08/11/20 19:04 Urine RBC (Auto) 34.0 /HPF (0.0-6.0) 08/11/20 19:04 U Epithel Cells (Auto) < 1.0 /HPF (0-13.0) 08/11/20 19:04 Urine Bacteria (Auto) 2+ /HPF (Negative) 08/11/20 19:04 Urine Mucus 2+ /HPF 08/11/20 19:04 Urine Yeast (Budding) 3+ /HPF 08/11/20 19:04 Microbiology: Microbiology 08/10/20 16:00 Peripheral/Venous Blood Culture - Preliminary NO GROWTH AFTER 24 HOURS 08/10/20 16:00 Peripheral/Venous Blood Culture - Preliminary NO GROWTH AFTER 24 HOURS 08/10/20 Unknown Urine,Catheterized - Indwelling Catheter Urine Culture - Preliminary Joseph/IV: Voiding Method Nephrostomy (Left) IV Catheter Type [Left INT / Saline Lock Antecubital] Active Medications - Current Medications Current Medications: Generic Name Dose Route Start Last Admin Trade Name Freq PRN Reason Stop Dose Admin Acetaminophen 650 mg 08/10/20 23:13 Tylenol PO Q4H PRN Pain MILD(1-3)/Fever >100.5/SOTO Famotidine 20 mg 08/10/20 23:45 08/12/20 11:55 Pepcid IV 20 mg BID MORIAH Administration Guaifenesin 10 ml 08/11/20 13:00 Guaifenesin Dm Syrup PO Q4H PRN Cough Heparin Sodium (Porcine) 5,000 unit 08/11/20 10:00 08/12/20 10:18 Heparin SUB-Q 5,000 unit Q12HR MORIAH Administration Sodium Chloride 1,000 mls @ 100 mls/hr 08/10/20 23:15 08/11/20 11:19 Nacl 0.9% 1000 Ml IV 100 mls/hr DIRECT MORIAH Administration Ceftriaxone Sodium 2 gm in 100 mls @ 200 mls/hr 08/11/20 10:00 08/12/20 11:54 Rocephin/Ns 2 Gm/100 Ml IV 200 mls/hr Q24HR MORIAH Administration Protocol Megestrol Acetate 400 mg 08/11/20 14:00 08/12/20 10:19 Megestrol PO Not Given QDAY MORIAH Metoclopramide HCl 10 mg 08/10/20 23:13 Reglan IV Q6H PRN Nausea And Vomiting Ondansetron HCl 4 mg 08/10/20 23:13 Zofran IV Q8H PRN Nausea And Vomiting Oxycodone/Acetaminophen 1 tab 08/10/20 23:13 Percocet 5/325 PO Q6H PRN Pain, Moderate (4-6) Sodium Chloride 10 ml 08/11/20 10:00 08/12/20 10:20 Sodium Chloride Flush Syringe 10 Ml IV Not Given BID MORIAH Sodium Chloride 10 ml 08/10/20 23:13 Sodium Chloride Flush Syringe 10 Ml IV PRN PRN LINE FLUSH Sodium Hypochlorite 1 applic 08/11/20 10:00 08/12/20 10:21 Dakin's Half Strength TP 1 applic BID MORIAH Administration Nutrition/Malnutrition Assess - Dietary Evaluation Nutrition/Malnutrition Findings: Nutrition Notes Start: 08/11/20 11:57 Freq: Status: Active Protocol: Document 08/11/20 11:57 AB (Rec: 08/11/20 12:03 AB [id number]) Co-Sign 08/11/20 11:57 MK Nutrition Notes Need for Assessment generated from: press and blow machine tender Initial or Follow up Brief Note Current Diagnosis Acute Kidney Injury,Decubitus( Pressure Ulcer),Diabetes, Sepsis,Hypertension, Hyperlipidemia Other Pertinent Diagnosis cerebral palsy, paraplegic, spinal stenosis, SIRS, UTI, metabolic acidosis Current Diet No diet Subjective/Other 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 No diet order, per chart. Per chart, waiting for speech eval. Nutrition Intervention Follow-Up By: 08/14/20 Additional Comments F/U for full assessment and need for ONS/Michael
[2020-08-12] MEDS: SODIUM CHLORIDE 0.9% 1000 ML 1,000 ML IV SCH (13:34)
[2020-08-12 16:02] LABS: Basophils # (Auto) 0.1 K/mm3 (0.0-0.1); Basophils % (Auto) 0.5 % (0.0-1.8); Eosinophils # (Auto) 0.3 K/mm3 (0.0-0.4); Eosinophils % (Auto) 3.2 % (0.0-4.3); Hematocrit 31.6 % (30.3-42.9); Hemoglobin 10.5 gm/dl (10.1-14.3); Lymphocytes # (Auto) 1.5 K/mm3 (1.2-5.4); Lymphocytes % (Auto) 15.1 % (13.4-35.0); Mean Corpuscular HGB Conc 33 % (30-34); Mean Corpuscular Volume 88 fl (79-97); Monocytes # (Auto) 1.4 K/mm3 (0.0-0.8); Monocytes % (Auto) 14.3 % (0.0-7.3); Red Blood Count 3.58 M/mm3 (3.65-5.03); Red Cell Distribution Width 19.4 % (13.2-15.2)
[2020-08-12 16:03] LABS: Platelet Count 179 K/mm3 (140-440)
[2020-08-12 16:40] LABS: Blood Urea Nitrogen 14 mg/dL (7-17); Calcium 7.7 mg/dL (8.4-10.2); Hemolysis Index 72
[2020-08-12 16:43] LABS: BUN/Creatinine Ratio 70
--- NOTE | 2020-08-13 07:36 | Progress Note ---
Assessment and Plan Assessment and plan: 39-year-old female with a past medical history of cerebral palsy diabetes chronic paraplegia secondary to spinal stenosis and ankylosing spondylitis of the lumbosacral region who is presenting with some flat affect for the last 2 days. Mother states that she normally is somewhat talkative but now is just kind of lying very quiet and lethargic. There is been no nausea vomiting diarrhea. Mother states that it has been less output from her urostomy bag. Patient also has had some mild constipation but was given laxative from her home health nurse and she did have a bowel movement today. Home health nurse called the paramedics secondary to blood pressure 82/49. Patient was afebrile had a heart rate of 91. There is been no mention of any cough cold congestion or signs or symptoms of COVID-19. 08/11: Doubt UTI this may have been a contaminated urine. Will recheck, patient appears that she was dehydrated on admission. Her blood pressures improved with hydration. She does have significant more improved urine output. I will resend a urine culture with a more clean approach. And also urinalysis. I discussed with the mother will monitor patient for next any 4 hours we will add anticough syrup to her medication regimen. Anticipate discharge in a day or 2. Will monitor potassium to ensure improvement. 08/12: Continue supportive care clinically improving awaiting speech evaluation bedside speech evaluation will be done by nursing staff to start on pured diet. Following discussion with the mother put a consult to Dr. Fung for port placement as patient has had difficult stick and recurrent dehydration was recently hospitalized at [facility] also. Mom is prefers to Dr. Antonieta Leon and Dr Nicolette jamison. Continue antibiotics were changed to p.o. While awaiting c ultures 08/13: Patient was seen by speech therapist Pt was AAOx2. When presented with the tsp of puree, once pt began to move it toward back of oral cavity, her gag reflex was immediately triggered. Pt eventually swallowed bouls, pt refused any further solid presentations. Pt did however safely tolerate multiple consecutive swallows of thin liquid from a straw without overt s/s aspiration. Hyolaryngeal elevation appeared to be adequate. Recommendation: 1. puree/ thin 2. neurological consult [ End ] Today patient is n.p.o. for port placement. Hypoxia has resolved. I discussed with the mother extensively yesterday patient is currently undergoing neurological work-up at [facility] and is going to be obtaining an outpatient MRI under sedation. This is planned for Friday anticipate discharge in a.m. on recommended pure dysphagia diet with thin liquids. We will add some bicarb for management of metabolic acidosis and mild hypernatremia. (1) Hypoxia Current Visit: Yes Status: Acute Plan to address problem: Initial sats were low Improved with NC o2 (2) SIRS (systemic inflammatory response syndrome) Current Visit: Yes Status: Acute Plan to address problem: Pateint hypotensive UTI and Tachycardic (3) Hypotension Current Visit: Yes Status: Acute Plan to address problem: IV fluids for now (4) Hyperkalemia Current Visit: Yes Status: Acute Plan to address problem: Treated in ED with kayexalte IV calcium gluconate and Bicarb (5) UTI (urinary tract infection) Current Visit: Yes Status: Acute Qualifiers: Urinary tract infection type: acute cystitis Plan to address problem: IV Rocephin initiated pending cultures (6) Dehydration Current Visit: Yes Status: Acute Plan to address problem: IV fluids for now (7) HTN (hypertension) Current Visit: Yes Status: Chronic Qualifiers: Hypertension type: essential hypertension Qualified Code(s): I10 - Essential (primary) hypertension Plan to address problem: Patient hypotensive now Hold antihypertensives for now (8) HLD (hyperlipidemia) Current Visit: No Status: Chronic Qualifiers: Hyperlipidemia type: mixed hyperlipidemia Qualified Code(s): E78.2 - Mixed hyperlipidemia Plan to address problem: Statins and fenofibrates for now (9) IDDM (insulin dependent diabetes mellitus) Current Visit: No Status: Chronic Plan to address problem: Coverage for now Check A1c (10) Sacral decubitus ulcer, stage IV Current Visit: Yes Status: Chronic Plan to address problem: Wound care (11) Cerebral palsy Current Visit: Yes Status: Chronic Qualifiers: Cerebral palsy type: unspecified type Qualified Code(s): G80.9 - Cerebral palsy, unspecified Plan to address problem: Supportive care (12) DVT prophylaxis Current Visit: No Status: Acute Plan to address problem: On Heparin and GI prophylaxis History Interval history: Patient seen and examined reports improvement in her symptoms. No new complaints today. Patient for port today. Hospitalist Physical - Physical exam Narrative exam: VITAL SIGNS: Reviewed. GENERAL: The patient appears normally developed, developmental delay vital signs as documented. HEAD: No signs of head trauma. EYES: Pupils are equal. Extraocular motions intact. EARS: Hearing grossly intact. MOUTH: Oropharynx is normal. NECK: No adenopathy, no JVD. CHEST: Chest with clear breath sounds bilaterally. No wheezes, rales, or rhonchi. CARDIAC: Regular rate and rhythm. S1 and S2, without murmurs, gallops, or rubs. VASCULAR: No Edema. Peripheral pulses normal and equal in all extremities. ABDOMEN: Soft, non tender and non distended. Colostomy and urostomy bag. Bowel Sounds normal. MUSCULOSKELETAL: Good range of motion of all major joints. Extremities without clubbing, cyanosis or edema. NEUROLOGIC EXAM: Alert and oriented x 3 No focal sensory or strength deficits. Speech normal. Follows commands. PSYCHIATRIC: Mood normal. SKIN: detail exam as documented in skin assessment - Constitutional Vitals: Temp Pulse Resp BP Pulse Ox 98.0 F 103 H 20 128/44 91 08/13/20 05:15 08/13/20 05:15 08/13/20 05:15 08/13/20 05:15 08/13/20 05:15 HEART Score - HEART Score Troponin: Troponin T 0.082 ng/mL (0.00-0.029) H 08/10/20 16:00 Results - Labs CBC & Chem 7: 08/12/20 15:41 08/12/20 15:41 Labs: Laboratory Last Values WBC 9.6 K/mm3 (4.5-11.0) 08/12/20 15:41 RBC 3.58 M/mm3 (3.65-5.03) L 08/12/20 15:41 Hgb 10.5 gm/dl (10.1-14.3) 08/12/20 15:41 Hct 31.6 % (30.3-42.9) 08/12/20 15:41 MCV 88 fl (79-97) 08/12/20 15:41 MCH 29 pg (28-32) 08/12/20 15:41 MCHC 33 % (30-34) 08/12/20 15:41 RDW 19.4 % (13.2-15.2) H 08/12/20 15:41 Plt Count 179 K/mm3 (140-440) 08/12/20 15:41 Lymph % (Auto) 15.1 % (13.4-35.0) 08/12/20 15:41 Union % (Auto) 14.3 % (0.0-7.3) H 08/12/20 15:41 Eos % (Auto) 3.2 % (0.0-4.3) 08/12/20 15:41 Baso % (Auto) 0.5 % (0.0-1.8) 08/12/20 15:41 Lymph # (Auto) 1.5 K/mm3 (1.2-5.4) 08/12/20 15:41 Union # (Auto) 1.4 K/mm3 (0.0-0.8) H 08/12/20 15:41 Eos # (Auto) 0.3 K/mm3 (0.0-0.4) 08/12/20 15:41 Baso # (Auto) 0.1 K/mm3 (0.0-0.1) 08/12/20 15:41 Add Manual Diff Complete 08/10/20 16:00 Total Counted 100 08/10/20 16:00 Seg Neutrophils % 66.9 % (40.0-70.0) 08/12/20 15:41 Seg Neuts % (Manual) 72.0 % (40.0-70.0) H 08/10/20 16:00 Band Neutrophils % 5.0 % 08/10/20 16:00 Lymphocytes % (Manual) 11.0 % (13.4-35.0) L 08/10/20 16:00 Reactive Lymphs % (Man) 0 % 08/10/20 16:00 Monocytes % (Manual) 11.0 % (0.0-7.3) H 08/10/20 16:00 Eosinophils % (Manual) 0 % (0.0-4.3) 08/10/20 16:00 Basophils % (Manual) 0 % (0.0-1.8) 08/10/20 16:00 Metamyelocytes % 1.0 % 08/10/20 16:00 Myelocytes % 0 % 08/10/20 16:00 Promyelocytes % 0 % 08/10/20 16:00 Blast Cells % 0 % 08/10/20 16:00 Nucleated RBC % Not Reportable 08/10/20 16:00 Seg Neutrophils # 6.4 K/mm3 (1.8-7.7) 08/12/20 15:41 Seg Neutrophils # Man 6.9 K/mm3 (1.8-7.7) 08/10/20 16:00 Band Neutrophils # 0.5 K/mm3 08/10/20 16:00 Lymphocytes # (Manual) 1.1 K/mm3 (1.2-5.4) L 08/10/20 16:00 Abs React Lymphs (Man) 0.0 K/mm3 08/10/20 16:00 Monocytes # (Manual) 1.1 K/mm3 (0.0-0.8) H 08/10/20 16:00 Eosinophils # (Manual) 0.0 K/mm3 (0.0-0.4) 08/10/20 16:00 Basophils # (Manual) 0.0 K/mm3 (0.0-0.1) 08/10/20 16:00 Metamyelocytes # 0.1 K/mm3 08/10/20 16:00 Myelocytes # 0.0 K/mm3 08/10/20 16:00 Promyelocytes # 0.0 K/mm3 08/10/20 16:00 Blast Cells # 0.0 K/mm3 08/10/20 16:00 WBC Morphology Not Reportable 08/10/20 16:00 Hypersegmented Neuts Not Reportable 08/10/20 16:00 Hyposegmented Neuts Not Reportable 08/10/20 16:00 Hypogranular Neuts Not Reportable 08/10/20 16:00 Smudge Cells Not Reportable 08/10/20 16:00 Toxic Granulation Not Reportable 08/10/20 16:00 Toxic Vacuolation Not Reportable 08/10/20 16:00 Dohle Bodies Not Reportable 08/10/20 16:00 Pelger-Huet Anomaly Not Reportable 08/10/20 16:00 Israel Rods Not Reportable 08/10/20 16:00 Platelet Estimate Consistent w auto 08/10/20 16:00 Clumped Platelets Not Reportable 08/10/20 16:00 Plt Clumps, EDTA Not Reportable 08/10/20 16:00 Large Platelets Not Reportable 08/10/20 16:00 Giant Platelets Not Reportable 08/10/20 16:00 Platelet Satelliting Not Reportable 08/10/20 16:00 Plt Morphology Comment Not Reportable 08/10/20 16:00 RBC Morphology Normal 08/10/20 16:00 Dimorphic RBCs Not Reportable 08/10/20 16:00 Polychromasia Not Reportable 08/10/20 16:00 Hypochromasia Not Reportable 08/10/20 16:00 Poikilocytosis Not Reportable 08/10/20 16:00 Anisocytosis Not Reportable 08/10/20 16:00 Microcytosis Not Reportable 08/10/20 16:00 Macrocytosis Not Reportable 08/10/20 16:00 Spherocytes Not Reportable 08/10/20 16:00 Pappenheimer Bodies Not Reportable 08/10/20 16:00 Sickle Cells Not Reportable 08/10/20 16:00 Target Cells Not Reportable 08/10/20 16:00 Tear Drop Cells Not Reportable 08/10/20 16:00 Ovalocytes Not Reportable 08/10/20 16:00 Helmet Cells Not Reportable 08/10/20 16:00 Leonard-Welty Bodies Not Reportable 08/10/20 16:00 Flomot Rings Not Reportable 08/10/20 16:00 Randee Cells Not Reportable 08/10/20 16:00 Bite Cells Not Reportable 08/10/20 16:00 Crenated Cell Not Reportable 08/10/20 16:00 Elliptocytes Not Reportable 08/10/20 16:00 Acanthocytes (Spur) Not Reportable 08/10/20 16:00 Rouleaux Not Reportable 08/10/20 16:00 Hemoglobin C Crystals Not Reportable 08/10/20 16:00 Schistocytes Not Reportable 08/10/20 16:00 Malaria parasites Not Reportable 08/10/20 16:00 Daniel Bodies Not Reportable 08/10/20 16:00 Hem Pathologist Commnt No 08/10/20 16:00 APTT 35.8 Sec. (24.2-36.6) 08/10/20 16:00 Sodium 148 mmol/L (137-145) H 08/12/20 15:41 Potassium 3.7 mmol/L (3.6-5.0) D 08/12/20 15:41 Chloride 115.5 mmol/L (98-107) H 08/12/20 15:41 Carbon Dioxide 17 mmol/L (22-30) L 08/12/20 15:41 Anion Gap 19 mmol/L 08/12/20 15:41 BUN 14 mg/dL (7-17) 08/12/20 15:41 Creatinine < 0.2 mg/dL (0.6-1.2) L 08/12/20 15:41 Estimated GFR > 60 ml/min 08/12/20 15:41 BUN/Creatinine Ratio 70 % 08/12/20 15:41 Glucose 128 mg/dL (65-100) H 08/12/20 15:41 POC Glucose 71 mg/dL (70-105) 08/11/20 18:31 Hemoglobin A1c 4.7 % (4-6) 08/10/20 Unknown Lactic Acid 1.40 mmol/L (0.7-2.0) 08/10/20 16:00 Calcium 7.7 mg/dL (8.4-10.2) L 08/12/20 15:41 Magnesium 1.60 mg/dL (1.7-2.3) L 08/10/20 16:00 Total Bilirubin < 0.20 mg/dL (0.1-1.2) 08/11/20 04:41 AST 32 units/L (5-40) 08/11/20 04:41 ALT 12 units/L (7-56) 08/11/20 04:41 Alkaline Phosphatase 99 units/L (35-129) 08/11/20 04:41 Total Creatine Kinase 74 units/L (30-135) 08/10/20 16:00 Troponin T 0.082 ng/mL (0.00-0.029) H 08/10/20 16:00 Total Protein 5.1 g/dL (6.3-8.2) L 08/11/20 04:41 Albumin 2.1 g/dL (3.9-5) L 08/11/20 04:41 Albumin/Globulin Ratio 0.7 % 08/11/20 04:41 Triglycerides 498 mg/dL (2-149) H 08/10/20 16:00 Cholesterol 112 mg/dL (50-199) 08/10/20 16:00 LDL Cholesterol Direct TNR 08/10/20 16:00 HDL Cholesterol 26 mg/dL (40-59) L 08/10/20 16:00 Cholesterol/HDL Ratio 4.30 % 08/10/20 16:00 Urine Color Yellow (Yellow) 08/11/20 19:04 Urine Turbidity Slightly-cloudy (Clear) 08/11/20 19:04 Urine pH 5.0 (5.0-7.0) 08/11/20 19:04 Ur Specific Monson 1.012 (1.003-1.030) 08/11/20 19:04 Urine Protein <15 mg/dl mg/dL (Negative) 08/11/20 19:04 Urine Glucose (UA) Neg mg/dL (Negative) 08/11/20 19:04 Urine Ketones Tr mg/dL (Negative) 08/11/20 19:04 Urine Blood Sm (Negative) 08/11/20 19:04 Urine Nitrite Pos (Negative) 08/11/20 19:04 Urine Bilirubin Neg (Negative) 08/11/20 19:04 Urine Urobilinogen < 2.0 mg/dL (<2.0) 08/11/20 19:04 Ur Leukocyte Esterase Neg (Negative) 08/11/20 19:04 Urine WBC (Auto) 36.0 /HPF (0.0-6.0) H 08/11/20 19:04 Urine RBC (Auto) 34.0 /HPF (0.0-6.0) 08/11/20 19:04 U Epithel Cells (Auto) < 1.0 /HPF (0-13.0) 08/11/20 19:04 Urine Bacteria (Auto) 2+ /HPF (Negative) 08/11/20 19:04 Urine Mucus 2+ /HPF 08/11/20 19:04 Urine Yeast (Budding) 3+ /HPF 08/11/20 19:04 Microbiology: Microbiology 08/10/20 16:00 Peripheral/Venous Blood Culture - Preliminary NO GROWTH AFTER 48 HOURS 08/10/20 16:00 Peripheral/Venous Blood Culture - Preliminary NO GROWTH AFTER 48 HOURS 08/11/20 09:00 Nares - Right MRSA Culture - Preliminary 08/11/20 19:04 Urine,Joseph Port Urine Culture - Preliminary 08/10/20 Unknown Urine,Catheterized - Indwelling Catheter Urine Culture - Final Joseph/IV: Voiding Method Incontinent IV Catheter Type [Right Chest] INT / Saline Lock IV Catheter Type [Left INT / Saline Lock Antecubital] Active Medications - Current Medications Current Medications: Generic Name Dose Route Start Last Admin Trade Name Freq PRN Reason Stop Dose Admin Acetaminophen 650 mg 08/10/20 23:13 Tylenol PO Q4H PRN Pain MILD(1-3)/Fever >100.5/SOTO Famotidine 20 mg 08/10/20 23:45 08/12/20 22:57 Pepcid IV 20 mg BID MORIAH Administration Guaifenesin 10 ml 08/11/20 13:00 Guaifenesin Dm Syrup PO Q4H PRN Cough Heparin Sodium (Porcine) 5,000 unit 08/11/20 10:00 08/12/20 22:57 Heparin SUB-Q 5,000 unit Q12HR MORIAH Administration Sodium Chloride 1,000 mls @ 100 mls/hr 08/10/20 23:15 08/12/20 13:34 Nacl 0.9% 1000 Ml IV 100 mls/hr DIRECT MORIAH Administration Ceftriaxone Sodium 2 gm in 100 mls @ 200 mls/hr 08/11/20 10:00 08/12/20 11:54 Rocephin/Ns 2 Gm/100 Ml IV 200 mls/hr Q24HR MORIAH Administration Protocol Megestrol Acetate 400 mg 08/11/20 14:00 08/12/20 10:19 Megestrol PO Not Given QDAY MORIAH Metoclopramide HCl 10 mg 08/10/20 23:13 Reglan IV Q6H PRN Nausea And Vomiting Ondansetron HCl 4 mg 08/10/20 23:13 Zofran IV Q8H PRN Nausea And Vomiting Oxycodone/Acetaminophen 1 tab 08/10/20 23:13 Percocet 5/325 PO Q6H PRN Pain, Moderate (4-6) Sodium Chloride 10 ml 08/11/20 10:00 08/12/20 23:00 Sodium Chloride Flush Syringe 10 Ml IV 10 ml BID MORIAH Administration Sodium Chloride 10 ml 08/10/20 23:13 Sodium Chloride Flush Syringe 10 Ml IV PRN PRN LINE FLUSH Sodium Hypochlorite 1 applic 08/11/20 10:00 08/12/20 22:59 Dakin's Half Strength TP 1 applic BID MORIAH Administration Nutrition/Malnutrition Assess - Dietary Evaluation Nutrition/Malnutrition Findings: Nutrition Notes Start: 08/11/20 11:57 Freq: Status: Active Protocol: Document 08/11/20 11:57 AB (Rec: 08/11/20 12:03 AB [id number]) Co-Sign 08/11/20 11:57 MK Nutrition Notes 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 No diet order, per chart. Per chart, waiting for speech eval. Nutrition Intervention Follow-Up By: 08/14/20 Additional Comments F/U for full assessment and need for ONS/Michael
[2020-08-13] MEDS ORDERED: SODIUM BICARB 8.4% 50 MEQ/50 ML SYRINGE IV ONE ×2 (07:37→12:00)
[2020-08-13] MEDS ORDERED: HEPARIN/NS 5000 UNIT/500ML 500 ML IR ONE (08:52)
[2020-08-13] MEDS ORDERED: SODIUM CHLORIDE 0.9% 250ML 250 ML ONE (08:53)
--- NOTE | 2020-08-13 09:47 | Consultation ---
History of Present Illness - Reason for Consult Consult date: 08/13/20 [id number] Placement Requesting physician: ARMANDO RIVERA - History of Present Illness The patient is a 39-year-old female with a history cerebral palsy and ankylosing spondylitis with spinal stenosis resulting in hemiparalysis. She was brought to the emergency department when her home health care nurse noted decreased urine output from her urostomy associated with hypotension and tachycardia. She had some decreased mentation associated with this. Upon presenting to the emergency department her work-up revealed a decubitus ulcer and possible urinary tract infection however there was no evidence of bacteremia. She has required multiple antibiotics and admissions to the hospital for IV medications and fluids over the years and now has limited IV access. We were consulted for placement of a subcutaneous port for long-term IV access. Past History Past Medical History: other (Cerebral palsy, ankylosing spondylitis, spinal stenosis, hydrocephalus, meningioma) Past Surgical History: abd. aortic aneurysm repair, Other (Colostomy, urostomy, APPLICATION INTEGRATION ARCHITECT shunt, cervical fusion, laminectomy) Social history: lives with family Family history: no significant family history Medications and Allergies Allergies Allergy/AdvReac Type Severity Reaction Status Date / Time amoxicillin trihydrate AdvReac Diarrhea Verified 10/19/18 08:09 [From Augmentin] potassium clavulanate AdvReac Diarrhea Verified 10/19/18 08:09 [From Augmentin] Home Medications Medication Instructions Recorded Confirmed Last Taken Type Nortriptyline HCl [Pamelor] 75 mg PO DAILY 07/15/18 08/10/20 01/11/19 History medroxyPROGESTERone ACETATE 150 mg IM QMONTH 07/15/18 08/10/20 07/15/18 09:00 History [Medroxyprogesterone Acetate] Acetaminophen [Acetaminophen TAB] 650 mg PO Q4H PRN tablet 07/24/18 08/10/20 Unknown Rx Fenofibrate 160 mg PO DAILY 10/17/18 08/10/20 01/11/19 History Gabapentin 100 mg PO DAILY 10/17/18 08/10/20 01/11/19 History Losartan [Cozaar] 25 mg PO QDAY 10/17/18 08/10/20 01/11/19 History metFORMIN [Glucophage] 800 mg PO BID 10/17/18 08/10/20 01/11/19 History Ferrous Sulfate [Feosol 325 MG tab] 325 mg PO DAILY 01/12/19 08/10/20 01/11/19 History Metoprolol 25 mg PO DAILY 01/12/19 08/10/20 01/11/19 History Atenolol [Tenormin] 25 mg PO DAILY 08/10/20 08/10/20 Unknown History Lacosamide [Vimpat] 1 tab PO BID 08/10/20 08/10/20 Unknown History Lactulose 10 gram PO DAILY 08/10/20 08/10/20 Unknown History Active Meds: Active Medications Acetaminophen (Tylenol) 650 mg PO Q4H PRN PRN Reason: Pain MILD(1-3)/Fever >100.5/SOTO Famotidine (Pepcid) 20 mg IV BID [facility] Last Admin: 08/12/20 22:57 Dose: 20 mg Documented by: Guaifenesin (Guaifenesin Dm Syrup) 10 ml PO Q4H PRN PRN Reason: Cough Heparin Sodium (Porcine) (Heparin) 5,000 unit SUB-Q Q12HR [facility] Last Admin: 08/12/20 22:57 Dose: 5,000 unit Documented by: Sodium Chloride (Nacl 0.9% 1000 Ml) 1,000 mls @ 100 mls/hr IV DIRECT [facility] Last Admin: 08/12/20 13:34 Dose: 100 mls/hr Documented by: Ceftriaxone Sodium (Rocephin/Ns 2 Gm/100 Ml) 2 gm in 100 mls @ 200 mls/hr IV Q24HR [facility]; Protocol Last Admin: 08/12/20 11:54 Dose: 200 mls/hr Documented by: Megestrol Acetate (Megestrol) 400 mg PO QDAY [facility] Last Admin: 08/12/20 10:19 Dose: Not Given Documented by: Metoclopramide HCl (Reglan) 10 mg IV Q6H PRN PRN Reason: Nausea And Vomiting Ondansetron HCl (Zofran) 4 mg IV Q8H PRN PRN Reason: Nausea And Vomiting Oxycodone/Acetaminophen (Percocet 5/325) 1 tab PO Q6H PRN PRN Reason: Pain, Moderate (4-6) Sodium Chloride (Sodium Chloride Flush Syringe 10 Ml) 10 ml IV BID [facility] Last Admin: 08/12/20 23:00 Dose: 10 ml Documented by: Sodium Chloride (Sodium Chloride Flush Syringe 10 Ml) 10 ml IV PRN PRN PRN Reason: LINE FLUSH Sodium Hypochlorite (Dakin's Half Strength) 1 applic TP BID MORIAH Last Admin: 08/12/20 22:59 Dose: 1 applic Documented by: Review of Systems All systems: negative Exam - Constitutional Vitals: Temp Pulse Resp BP Pulse Ox 98.0 F 103 H 20 128/44 91 08/13/20 05:15 08/13/20 05:15 08/13/20 05:15 08/13/20 05:15 08/13/20 05:15 General appearance: Present: no acute distress - Neck Neck: Present: supple - Respiratory Respiratory effort: normal - Cardiovascular Rhythm: regular - Extremities Extremities: no ischemia Extremity abnormal: edema (Bilateral lower extremity) - Abdominal General gastrointestinal: Present: soft, other (Colostomy and urostomy without evidence of hernia) Female genitourinary: Present: deferred - Rectal Rectal Exam: deferred Results - Labs CBC & Chem 7: 08/12/20 15:41 08/12/20 15:41 Labs: Abnormal lab results 08/12/20 08/12/20 Range/Units 15:41 15:41 RBC 3.58 L (3.65-5.03) M/mm3 RDW 19.4 H (13.2-15.2) % Howell % (Auto) 14.3 H (0.0-7.3) % Howell # (Auto) 1.4 H (0.0-0.8) K/mm3 Sodium 148 H (137-145) mmol/L Chloride 115.5 H (98-107) mmol/L Carbon Dioxide 17 L (22-30) mmol/L Creatinine < 0.2 L (0.6-1.2) mg/dL Glucose 128 H (65-100) mg/dL Calcium 7.7 L (8.4-10.2) mg/dL Assessment and Plan The patient is a 39-year-old female with a history of cerebral palsy and ankylosing spondylitis with spinal stenosis resulted in hemiparalysis. She has limited IV access and has required multiple hospitalizations requiring antibiotics, IV medications, and IV fluids. She is in need of a subcutaneous port for IV access. Her mother has been given the risk, benefits, and alternative procedures and consented to the procedure.
[2020-08-13] MEDS: MEGESTROL 400 MG/10 ML ORAL LIQD PO SCH (10:00)
[2020-08-13] MEDS: HEPARIN 5,000 UNIT/1 ML VIAL SUB-Q SCH ×2 (10:00→21:11)
[2020-08-13] MEDS: MIDAZOLAM 2 MG/2 ML INJ ONE ×2 (10:01→10:40)
[2020-08-13] MEDS: fentaNYL 100 MCG/2 ML INJ ONE ×2 (10:01→10:40)
[2020-08-13] MEDS: LIDOCAINE 1%/EPINEPHRINE 1:100,000 VIAL (20 ML) INFILTRATI ONE ×2 (10:03→10:26)
[2020-08-13] MEDS ORDERED: LIDOCAINE 1%/EPINEPHRINE 1:100,000 VIAL (20 ML) INFILTRATI ONE (10:34)
[2020-08-13] MEDS: HEPARIN 10,000 UNITS/10 ML VIAL ONE ×2 (11:00→11:08)
--- NOTE | 2020-08-13 11:40 | Operative Report ---
Operative Report Operative Report: Date of Procedure: 08/13/2020 Pre-operative Diagnosis: Limited IV Access Post-operative Diagnosis: Same Procedure(s): 1. Ultrasound-Guided Access Left Internal Jugular Vein 2. Placement of 9.6 Serbian Bard PowerPort With Subcutaneous Implantable Port 3. Radiologic Supervision With Interpretation 4. Monitored Moderate Sedation (Total Anesthesia Time: 49 Minutes) Surgeon: Cruzito Leon M.D. Corrugator Machine Operator: None Anesthesia: Local/Monitored Moderate Sedation Total Anesthesia Time: 49 Minutes EBL: Minimal Counts: Correct Complications: None Condition: Stable Findings: Left internal jugular catheter placed with distal tip in the right atrium and no evidence of pneumothorax identified at the completion of the case. The port easily aspirated and flushed at the completion of the case. Specimen: None Indication: The patient is a 39-year-old female with a history of multiple medical issues including cerebral palsy and ankylosing spondylitis. She has had difficulty with IV access since infancy and is in need of long-term IV access. Her mother was given the risk, benefits, and alternative procedures of [id number] placement and agreed to the procedure. Description of Procedure: Initially the patient's right internal jugular vein was interrogated with ultrasound and was found to be occluded. The left internal jugular vein was identified and found to be patent with ultrasound. The left neck and chest were then prepped and draped in normal sterile fashion. The skin and soft tissue overlying the left internal jugular vein was then anesthetized with lidocaine. An 11 blade was used to make a small stab incision and then a 21-gauge micropuncture needle was used with ultrasound guidance into the left internal jugular vein. A 0.018 micropuncture wire was advanced into the vein and after removing the needle the micropuncture sheath was advanced by Seldinger technique. The dilator and wire were removed and a 0.035 J-wire was advanced into the inferior vena cava under fluoroscopy. The micropuncture sheath was then removed and a peel-away sheath was advanced into the internal jugular vein by Seldinger technique. The presumed tract of the catheter was then anesthetized with lidocaine and the chest wall was anesthetized for creation of the pocket. A transverse incision was then created on the chest wall and a small pocket was created for the subcutaneous port. The catheter was then connected to the tunneler and tunneled in the subcutaneous plane from the pocket to the incision on the neck. The tunneler was removed and the catheter was inserted into the peel-away sheath and advanced into position with the distal tip in the right atrium. The SafeSheath was then pulled away and the catheter was again positioned with the distal tip in the right atrium. The catheter was then cut to length and connected to the port. The port easily aspirated and flushed. The port was then placed within the subcutaneous pocket. The incision was then closed in 2 layers using a 3-0 Vicryl running fashion the deep dermal layer and a 4-0 Monocryl in running fashion the subcuticular layer and then dressed with Dermabond. The neck incision was closed with a 4-0 Monocryl in interrupted fashion and subcuticular layer and then dressed with Dermabond. The port was then accessed with a 19-gauge Mccormick needle and then easily aspirated and primed with the appropriate amount of heparin. This was then dressed with a sterile dressing leaving the subcutaneous port accessed with a Mccormick needle. The patient tolerated the procedure well. All sponge, needle, and instrument counts were correct. The final fluoroscopy demonstrated the catheter was in adequate position with the distal tip in the right atrium and there was no evidence of pneumothorax at the completion the case. The patient was transported back to her room in stable condition.
[2020-08-13] MEDS: cefTRIAXone/NS 2 GM/100 ML 2 GM/100 ML BAG IV SCH (11:47)
[2020-08-13] MEDS: SODIUM HYPOCHLORITE, DAKIN'S 1/2 STRENGTH (0.25%) 473 ML TOPICAL SOLN TP SCH ×3 (11:48→21:12)
[2020-08-13] MEDS: FAMOTIDINE 20 MG/2 ML INJ IV SCH ×2 (11:48→21:11)
[2020-08-14] MEDS: SODIUM CHLORIDE 0.9% 1000 ML 1,000 ML IV SCH (03:53)
[2020-08-14] MEDS: SODIUM HYPOCHLORITE, DAKIN'S 1/2 STRENGTH (0.25%) 473 ML TOPICAL SOLN TP SCH ×2 (09:05→22:32)
[2020-08-14 09:10] LABS: Blood Urea Nitrogen 9 mg/dL (7-17); Calcium 7.2 mg/dL (8.4-10.2); Hemolysis Index 15
[2020-08-14 09:18] LABS: BUN/Creatinine Ratio 45
[2020-08-14] MEDS: cefTRIAXone/NS 2 GM/100 ML 2 GM/100 ML BAG IV SCH (09:39)
[2020-08-14] MEDS: FAMOTIDINE 20 MG/2 ML INJ IV SCH ×2 (09:44→22:32)
[2020-08-14] MEDS: MEGESTROL 400 MG/10 ML ORAL LIQD PO SCH (09:44)
[2020-08-14] MEDS: HEPARIN 5,000 UNIT/1 ML VIAL SUB-Q SCH ×2 (09:45→22:32)
--- NOTE | 2020-08-14 12:43 | Progress Note ---
Subjective Date of service: 08/14/20 Interval history: 39-year-old female with a past medical history of cerebral palsy diabetes chronic paraplegia secondary to spinal stenosis and ankylosing spondylitis of the lumbosacral region who is presenting with some flat affect for the last 2 days. Mother states that she normally is somewhat talkative but now is just kind of lying very quiet and lethargic. There is been no nausea vomiting diarrhea. Mother states that it has been less output from her urostomy bag. Patient also has had some mild constipation but was given laxative from her home health nurse and she did have a bowel movement today. Home health nurse called the paramedics secondary to blood pressure 82/49. Patient was afebrile had a heart rate of 91. There is been no mention of any cough cold congestion or signs or symptoms of COVID-19. 08/11: Doubt UTI this may have been a contaminated urine. Will recheck, patient appears that she was dehydrated on admission. Her blood pressures improved with hydration. She does have significant more improved urine output. I will resend a urine culture with a more clean approach. And also urinalysis. I discussed with the mother will monitor patient for next any 4 hours we will add anticough syrup to her medication regimen. Anticipate discharge in a day or 2. Will monitor potassium to ensure improvement. 08/12: Continue supportive care clinically improving awaiting speech evaluation bedside speech evaluation will be done by nursing staff to start on pured diet. Following discussion with the mother put a consult to Dr. Fung for port placement as patient has had difficult stick and recurrent dehydration was recently hospitalized at [place] also. Mom is prefers to Dr. Antonieta Leon and Dr Nicolette jamisno. Continue antibiotics were changed to p.o. While awaiting cultures 08/13: Patient was seen by speech therapist Pt was AAOx2. When presented with the tsp of puree, once pt began to move it toward back of oral cavity, her gag reflex was immediately triggered. Pt eventually swallowed bouls, pt refused any further solid presentations. Pt did however safely tolerate multiple consecutive swallows of thin liquid from a straw without overt s/s aspiration. Hyolaryngeal elevation appeared to be adequate. 08/14 patient is awake and alert and offers no specific complaints. She is bedbound from her cerebral palsy and try to reach patient's mother to give an update However message box is full and was unable to leave a message. Lab results reviewed. Not ready for discharge today. Possible discharge tomorrow Assessment and plan Hypernatremia Secondary to volume depletion and dehydration/IV fluids with normal saline Will discontinue normal saline and start the patient on D5 water Repeat electrolytes in a.m. Hypokalemia Potassium supplements ordered Monitor electrolytes closely UTI Continue ceftriaxone but will decrease the dose to 1 g daily Hypoxia Improved Hypotension Improved History of hypertension Normotensive off medication Continue to hold off on home medications Type 2 diabetes Continue insulin sliding scale coverage Accu-Cheks reviewed History of cerebral palsy Supportive care Stage IV sacral decub Secondary to cerebral palsy Wound care Patient is scheduled for outpatient MRI tomorrow under sedation However will hold off her discharge today due to electrolyte abnormalities Objective - Constitutional Vitals: Vital Signs - 12hr 08/14/20 05:16 Temperature 97.3 F L Pulse Rate 109 H Respiratory 18 Rate Blood Pressure 131/74 O2 Sat by Pulse 95 Oximetry General appearance: Present: no acute distress, well-nourished - EENT Eyes: PERRL, EOM intact ENT: hearing intact, clear oral mucosa - Neck Neck: supple, normal ROM - Respiratory Respiratory effort: normal Respiratory: bilateral: CTA - Breasts Breasts: deferred - Cardiovascular Rhythm: regular Heart Sounds: Present: S1 & S2 Extremities: No edema - Gastrointestinal General gastrointestinal: Present: soft, non-tender Rectal Exam: deferred - Neurologic Neurologic: other (Paraplegic secondary to cerebral palsy) - Psychiatric Psychiatric: appropriate mood/affect - Labs CBC & Chem 7: 08/12/20 15:41 08/14/20 08:28 Labs: Abnormal lab results 08/14/20 Range/Units 08:28 Sodium 152 H (137-145) mmol/L Potassium 3.0 L (3.6-5.0) mmol/L Chloride 118.3 H (98-107) mmol/L Creatinine < 0.2 L (0.6-1.2) mg/dL Glucose 108 H (65-100) mg/dL Calcium 7.2 L (8.4-10.2) mg/dL HEART Score - HEART Score Troponin: Troponin T 0.082 ng/mL (0.00-0.029) H 08/10/20 16:00
[2020-08-14] MEDS ORDERED: POTASSIUM CHLORIDE ER 20 MEQ TAB PO SCH (13:00)
[2020-08-14] MEDS: DEXTROSE 5% IN WATER 1,000 ML IV SCH (15:14)
[2020-08-14] MEDS: oxyCODONE /ACETAMINOPHEN 5-325MG TAB PO PRN (16:09)
[2020-08-15 07:18] LABS: Blood Urea Nitrogen 9 mg/dL (7-17); Calcium 7.4 mg/dL (8.4-10.2); Hemolysis Index 6
[2020-08-15 07:21] LABS: BUN/Creatinine Ratio 45
--- NOTE | 2020-08-15 07:58 | Discharge Summary ---
Providers - Providers Date of Admission: 08/10/20 17:40 Attending physician: ARMANDO RIVERA MD 08/11/20 08:11 Consult to Wound/ET Nurse [CONS] Routine Reason For Exam: wound eval 08/11/20 08:26 Speech Therapy Evaluation and Treat [CONS] Routine Reason For Exam: swallow eval 08/12/20 11:27 Consult to Physician [CONS] Routine Comment: Consulting Provider: GRACIELA FUNG Physician Instructions: Reason For Exam: access for assisted fluids-port Primary care physician: SMOKEHOUSE OPERATOR Hospitalization Condition: Stable Hospital course: 39-year-old female with a past medical history of cerebral palsy diabetes chronic paraplegia secondary to spinal stenosis and ankylosing spondylitis of the lumbosacral region who is presenting with some flat affect for the last 2 days. Mother states that she normally is somewhat talkative but now is just kind of lying very quiet and lethargic. There is been no nausea vomiting diarrhea. Mother states that it has been less output from her urostomy bag. Patient also has had some mild constipation but was given laxative from her home health nurse and she did have a bowel movement today. Home health alana se called the paramedics secondary to blood pressure 82/49. Patient was afebrile had a heart rate of 91. There is been no mention of any cough cold congestion or signs or symptoms of COVID-19. 08/11: Doubt UTI this may have been a contaminated urine. Will recheck, patient appears that she was dehydrated on admission. Her blood pressures improved with hydration. She does have significant more improved urine output. I will resend a urine culture with a more clean approach. And also urinalysis. I discussed with the mother will monitor patient for next any 4 hours we will add anticough syrup to her medication regimen. Anticipate discharge in a day or 2. Will monitor potassium to ensure improvement. 08/12: Continue supportive care clinically improving awaiting speech evaluation bedside speech evaluation will be done by nursing staff to start on pured diet. Following discussion with the mother put a consult to Dr. Fung for port placement as patient has had difficult stick and recurrent dehydration was recently hospitalized at [facility] also. Mom is prefers to Dr. Antonieta Lam and Dr Nicolette jamison. Continue antibiotics were changed to p.o. While awaiting cultures 08/13: Patient was seen by speech therapist Pt was AAOx2. When presented with the tsp of puree, once pt began to move it toward back of oral cavity, her gag reflex was immediately triggered. Pt eventually swallowed bouls, pt refused any further solid presentations. Pt did however safely tolerate multiple consecutive swallows of thin liquid from a straw without overt s/s aspiration. Hyolaryngeal elevation appeared to be adequate. 08/14 patient is awake and alert and offers no specific complaints. She is bedbound from her cerebral palsy and try to reach patient's mother to give an update However message box is full and was unable to leave a message. Lab results reviewed. Not ready for discharge today. Possible discharge tomorrow 08/15: Patient clinically improved, electrolytes corrected. K 3.5, will give additional Kcl, 40meq PO and patient can be discharged. Patient will be discharged so that the patient can follow and Get MRI Assessment and plan Hypernatremia Secondary to volume depletion and dehydration/IV fluids with normal saline Will discontinue normal saline and start the patient on D5 water Repeat electrolytes in a.m. Hypokalemia Potassium supplements ordered Monitor electrolytes closely UTI Continue ceftriaxone but will decrease the dose to 1 g daily Hypoxia Improved Hypotension Improved History of hypertension Normotensive off medication Continue to hold off on home medications Type 2 diabetes Continue insulin sliding scale coverage Accu-Cheks reviewed History of cerebral palsy Supportive care Stage IV sacral decub Secondary to cerebral palsy Wound care Patient is scheduled for outpatient MRI tomorrow under sedation However will hold off her discharge today due to electrolyte abnormalities Disposition: DC-01 TO HOME OR SELFCARE Time spent for discharge: 35 MINS Core Measure Documentation - Palliative Care Palliative Care/ Comfort Measures: Not Applicable - Core Measures Any of the following diagnoses?: none Exam - Physical Exam Narrative exam: VITAL SIGNS: Reviewed. GENERAL: The patient appears normally developed, developmental delay vital signs as documented. HEAD: No signs of head trauma. EYES: Pupils are equal. Extraocular motions intact. EARS: Hearing grossly intact. MOUTH: Oropharynx is normal. NECK: No adenopathy, no JVD. CHEST: Chest with clear breath sounds bilaterally. No wheezes, rales, or rhonchi. CARDIAC: Regular rate and rhythm. S1 and S2, without murmurs, gallops, or rubs. VASCULAR: No Edema. Peripheral pulses normal and equal in all extremities. ABDOMEN: Soft, non tender and non distended. Colostomy and urostomy bag. Bowel Sounds normal. MUSCULOSKELETAL: Good range of motion of all major joints. Extremities without clubbing, cyanosis or edema. NEUROLOGIC EXAM: Alert and oriented x 3 No focal sensory or strength deficits. Speech normal. Follows commands. PSYCHIATRIC: Mood normal. SKIN: detail exam as documented in skin assessment - Constitutional Vitals: Temp Pulse Resp BP Pulse Ox 98.0 F 107 H 18 124/74 96 08/14/20 22:02 08/15/20 05:05 08/15/20 05:05 08/15/20 05:05 08/15/20 05:05 Plan Activity: advance as tolerated, fall precautions Diet: low fat Special Instructions: record daily weights, record daily BP diary Additional Instructions: please obtain recommended MRI and follow with Neurologist. Follow up with: PRIMARY CARE, [Primary Care Provider] - 7 Days VIVIAN LAM MD [Staff Physician] - 7 Days Prescriptions: megestroL [Megestrol] 400 mg PO QDAY 30 Days oral.liqd oxyCODONE /ACETAMINOPHEN [Percocet 5/325 mg] 1 tab PO Q6H PRN #10 tablet PRN Reason: Pain, Moderate (4-6)
--- NOTE | 2020-08-15 08:10 | Progress Note ---
Assessment and Plan Assessment and plan: 39-year-old female with a past medical history of cerebral palsy diabetes chronic paraplegia secondary to spinal stenosis and ankylosing spondylitis of the lumbosacral region who is presenting with some flat affect for the last 2 days. Mother states that she normally is somewhat talkative but now is just kind of lying very quiet and lethargic. There is been no nausea vomiting diarrhea. Mother states that it has been less output from her urostomy bag. Patient also has had some mild constipation but was given laxative from her home health nurse and she did have a bowel movement today. Home health nurse called the paramedics secondary to blood pressure 82/49. Patient was afebrile had a heart rate of 91. There is been no mention of any cough cold congestion or signs or symptoms of COVID-19. 08/11: Doubt UTI this may have been a contaminated urine. Will recheck, patient appears that she was dehydrated on admission. Her blood pressures improved with hydration. She does have significant more improved urine output. I will resend a urine culture with a more clean approach. And also urinalysis. I discussed with the mother will monitor patient for next any 4 hours we will add anticough syrup to her medication regimen. Anticipate discharge in a day or 2. Will monitor potassium to ensure improvement. 08/12: Continue supportive care clinically improving awaiting speech evaluation bedside speech evaluation will be done by nursing staff to start on pured diet. Following discussion with the mother put a consult to Dr. uFng for port placement as patient has had difficult stick and recurrent dehydration was recently hospitalized at [place] also. Mom is prefers to Dr. Antonieta Leon and Dr Nicolette jamison. Continue antibiotics were changed to p.o. While awaiting c ultures 08/13: Patient was seen by speech therapist Pt was AAOx2. When presented with the tsp of puree, once pt began to move it toward back of oral cavity, her gag reflex was immediately triggered. Pt eventually swallowed bouls, pt refused any further solid presentations. Pt did however safely tolerate multiple consecutive swallows of thin liquid from a straw without overt s/s aspiration. Hyolaryngeal elevation appeared to be adequate. 08/14 patient is awake and alert and offers no specific complaints. She is bedbound from her cerebral palsy and try to reach patient's mother to give an up date However message box is full and was unable to leave a message. Lab results reviewed. Not ready for discharge today. Possible discharge tomorrow 08/15: Patient clinically improved, electrolytes corrected. K 3.5, will give additional Kcl, 40meq PO and patient can be discharged. Patient will be discharged so that the patient can follow and Get MRI Assessment and plan Encephalopathy, Metabolic Discussed Hypernatremia Secondary to volume depletion and dehydration/IV fluids with normal saline Will discontinue normal saline and start the patient on D5 water Repeat electrolytes in a.m. Hypokalemia Potassium supplements ordered Monitor electrolytes closely UTI Continue ceftriaxone but will decrease the dose to 1 g daily Hypoxia Improved Hypotension Improved History of hypertension Normotensive off medication Continue to hold off on home medications Type 2 diabetes Continue insulin sliding scale coverage Accu-Cheks reviewed History of cerebral palsy Supportive care Stage IV sacral decub Secondary to cerebral palsy Wound care Patient is scheduled for outpatient MRI tomorrow under sedation However will hold off her discharge today due to electrolyte abnormalities History Interval history: Patient seen and examined reports improvement in her symptoms. No new complaints today. Hospitalist Physical - Physical exam Narrative exam: VITAL SIGNS: Reviewed. GENERAL: The patient appears normally developed, developmental delay vital signs as documented. HEAD: No signs of head trauma. EYES: Pupils are equal. Extraocular motions intact. EARS: Hearing grossly intact. MOUTH: Oropharynx is normal. NECK: No adenopathy, no JVD. CHEST: Chest with clear breath sounds bilaterally. No wheezes, rales, or rhonchi. CARDIAC: Regular rate and rhythm. S1 and S2, without murmurs, gallops, or rubs. VASCULAR: No Edema. Peripheral pulses normal and equal in all extremities. ABDOMEN: Soft, non tender and non distended. Colostomy and urostomy bag. B owel Sounds normal. MUSCULOSKELETAL: Good range of motion of all major joints. Extremities without clubbing, cyanosis or edema. NEUROLOGIC EXAM: Alert and oriented x 3 No focal sensory or strength deficits. Speech normal. Follows commands. PSYCHIATRIC: Mood normal. SKIN: detail exam as documented in skin assessment - Constitutional Vitals: Temp Pulse Resp BP Pulse Ox 98.0 F 107 H 18 124/74 96 08/14/20 22:02 08/15/20 05:05 08/15/20 05:05 08/15/20 05:05 08/15/20 05:05 General appearance: Present: no acute distress, well-nourished HEART Score - HEART Score Troponin: Troponin T 0.082 ng/mL (0.00-0.029) H 08/10/20 16:00 Results - Labs CBC & Chem 7: 08/12/20 15:41 12 05:00 Labs: Laboratory Last Values WBC 9.6 K/mm3 (4.5-11.0) 08/12/20 15:41 RBC 3.58 M/mm3 (3.65-5.03) L 08/12/20 15:41 Hgb 10.5 gm/dl (10.1-14.3) 08/12/20 15:41 Hct 31.6 % (30.3-42.9) 08/12/20 15:41 MCV 88 fl (79-97) 08/12/20 15:41 MCH 29 pg (28-32) 08/12/20 15:41 MCHC 33 % (30-34) 08/12/20 15:41 RDW 19.4 % (13.2-15.2) H 08/12/20 15:41 Plt Count 179 K/mm3 (140-440) 08/12/20 15:41 Lymph % (Auto) 15.1 % (13.4-35.0) 08/12/20 15:41 Foard % (Auto) 14.3 % (0.0-7.3) H 08/12/20 15:41 Eos % (Auto) 3.2 % (0.0-4.3) 08/12/20 15:41 Baso % (Auto) 0.5 % (0.0-1.8) 08/12/20 15:41 Lymph # (Auto) 1.5 K/mm3 (1.2-5.4) 08/12/20 15:41 Foard # (Auto) 1.4 K/mm3 (0.0-0.8) H 08/12/20 15:41 Eos # (Auto) 0.3 K/mm3 (0.0-0.4) 08/12/20 15:41 Baso # (Auto) 0.1 K/mm3 (0.0-0.1) 08/12/20 15:41 Add Manual Diff Complete 08/10/20 16:00 Total Counted 100 08/10/20 16:00 Seg Neutrophils % 66.9 % (40.0-70.0) 08/12/20 15:41 Seg Neuts % (Manual) 72.0 % (40.0-70.0) H 08/10/20 16:00 Band Neutrophils % 5.0 % 08/10/20 16:00 Lymphocytes % (Manual) 11.0 % (13.4-35.0) L 08/10/20 16:00 Reactive Lymphs % (Man) 0 % 08/10/20 16:00 Monocytes % (Manual) 11.0 % (0.0-7.3) H 08/10/20 16:00 Eosinophils % (Manual) 0 % (0.0-4.3) 08/10/20 16:00 Basophils % (Manual) 0 % (0.0-1.8) 08/10/20 16:00 Metamyelocytes % 1.0 % 08/10/20 16:00 Myelocytes % 0 % 08/10/20 16:00 Promyelocytes % 0 % 08/10/20 16:00 Blast Cells % 0 % 08/10/20 16:00 Nucleated RBC % Not Reportable 08/10/20 16:00 Seg Neutrophils # 6.4 K/mm3 (1.8-7.7) 08/12/20 15:41 Seg Neutrophils # Man 6.9 K/mm3 (1.8-7.7) 08/10/20 16:00 Band Neutrophils # 0.5 K/mm3 08/10/20 16:00 Lymphocytes # (Manual) 1.1 K/mm3 (1.2-5.4) L 08/10/20 16:00 Abs React Lymphs (Man) 0.0 K/mm3 08/10/20 16:00 Monocytes # (Manual) 1.1 K/mm3 (0.0-0.8) H 08/10/20 16:00 Eosinophils # (Manual) 0.0 K/mm3 (0.0-0.4) 08/10/20 16:00 Basophils # (Manual) 0.0 K/mm3 (0.0-0.1) 08/10/20 16:00 Metamyelocytes # 0.1 K/mm3 08/10/20 16:00 Myelocytes # 0.0 K/mm3 08/10/20 16:00 Promyelocytes # 0.0 K/mm3 08/10/20 16:00 Blast Cells # 0.0 K/mm3 08/10/20 16:00 WBC Morphology Not Reportable 08/10/20 16:00 Hypersegmented Neuts Not Reportable 08/10/20 16:00 Hyposegmented Neuts Not Reportable 08/10/20 16:00 Hypogranular Neuts Not Reportable 08/10/20 16:00 Smudge Cells Not Reportable 08/10/20 16:00 Toxic Granulation Not Reportable 08/10/20 16:00 Toxic Vacuolation Not Reportable 08/10/20 16:00 Dohle Bodies Not Reportable 08/10/20 16:00 Pelger-Huet Anomaly Not Reportable 08/10/20 16:00 Israel Rods Not Reportable 08/10/20 16:00 Platelet Estimate Consistent w auto 08/10/20 16:00 Clumped Platelets Not Reportable 08/10/20 16:00 Plt Clumps, EDTA Not Reportable 08/10/20 16:00 Large Platelets Not Reportable 08/10/20 16:00 Giant Platelets Not Reportable 08/10/20 16:00 Platelet Satelliting Not Reportable 08/10/20 16:00 Plt Morphology Comment Not Reportable 08/10/20 16:00 RBC Morphology Normal 08/10/20 16:00 Dimorphic RBCs Not Reportable 08/10/20 16:00 Polychromasia Not Reportable 08/10/20 16:00 Hypochromasia Not Reportable 08/10/20 16:00 Poikilocytosis Not Reportable 08/10/20 16:00 Anisocytosis Not Reportable 08/10/20 16:00 Microcytosis Not Reportable 08/10/20 16:00 Macrocytosis Not Reportable 08/10/20 16:00 Spherocytes Not Reportable 08/10/20 16:00 Pappenheimer Bodies Not Reportable 08/10/20 16:00 Sickle Cells Not Reportable 08/10/20 16:00 Target Cells Not Reportable 08/10/20 16:00 Tear Drop Cells Not Reportable 08/10/20 16:00 Ovalocytes Not Reportable 08/10/20 16:00 Helmet Cells Not Reportable 08/10/20 16:00 Leonard-Satsuma Bodies Not Reportable 08/10/20 16:00 Aztec Rings Not Reportable 08/10/20 16:00 Randee Cells Not Reportable 08/10/20 16:00 Bite Cells Not Reportable 08/10/20 16:00 Crenated Cell Not Reportable 08/10/20 16:00 Elliptocytes Not Reportable 08/10/20 16:00 Acanthocytes (Spur) Not Reportable 08/10/20 16:00 Rouleaux Not Reportable 08/10/20 16:00 Hemoglobin C Crystals Not Reportable 08/10/20 16:00 Schistocytes Not Reportable 08/10/20 16:00 Malaria parasites Not Reportable 08/10/20 16:00 Daniel Bodies Not Reportable 08/10/20 16:00 Hem Pathologist Commnt No 08/10/20 16:00 APTT 35.8 Sec. (24.2-36.6) 08/10/20 16:00 Sodium 146 mmol/L (137-145) H 08/15/20 05:00 Potassium 3.5 mmol/L (3.6-5.0) L 08/15/20 05:00 Chloride 113.3 mmol/L (98-107) H 08/15/20 05:00 Carbon Dioxide 22 mmol/L (22-30) 08/15/20 05:00 Anion Gap 14 mmol/L 08/15/20 05:00 BUN 9 mg/dL (7-17) 08/15/20 05:00 Creatinine < 0.2 mg/dL (0.6-1.2) L 08/15/20 05:00 Estimated GFR > 60 ml/min 08/15/20 05:00 BUN/Creatinine Ratio 45 % 08/15/20 05:00 Glucose 125 mg/dL (65-100) H 08/15/20 05:00 POC Glucose 71 mg/dL (70-105) 08/11/20 18:31 Hemoglobin A1c 4.7 % (4-6) 08/10/20 Unknown Lactic Acid 1.40 mmol/L (0.7-2.0) 08/10/20 16:00 Calcium 7.4 mg/dL (8.4-10.2) L 08/15/20 05:00 Magnesium 1.60 mg/dL (1.7-2.3) L 08/10/20 16:00 Total Bilirubin < 0.20 mg/dL (0.1-1.2) 08/11/20 04:41 AST 32 units/L (5-40) 08/11/20 04:41 ALT 12 units/L (7-56) 08/11/20 04:41 Alkaline Phosphatase 99 units/L (35-129) 08/11/20 04:41 Total Creatine Kinase 74 units/L (30-135) 08/10/20 16:00 Troponin T 0.082 ng/mL (0.00-0.029) H 08/10/20 16:00 Total Protein 5.1 g/dL (6.3-8.2) L 08/11/20 04:41 Albumin 2.1 g/dL (3.9-5) L 08/11/20 04:41 Albumin/Globulin Ratio 0.7 % 08/11/20 04:41 Triglycerides 498 mg/dL (2-149) H 08/10/20 16:00 Cholesterol 112 mg/dL (50-199) 08/10/20 16:00 LDL Cholesterol Direct TNR 08/10/20 16:00 HDL Cholesterol 26 mg/dL (40-59) L 08/10/20 16:00 Cholesterol/HDL Ratio 4.30 % 08/10/20 16:00 Urine Color Yellow (Yellow) 08/11/20 19:04 Urine Turbidity Slightly-cloudy (Clear) 08/11/20 19:04 Urine pH 5.0 (5.0-7.0) 08/11/20 19:04 Ur Specific [place] 1.012 (1.003-1.030) 08/11/20 19:04 Urine Protein <15 mg/dl mg/dL (Negative) 08/11/20 19:04 Urine Glucose (UA) Neg mg/dL (Negative) 08/11/20 19:04 Urine Ketones Tr mg/dL (Negative) 08/11/20 19:04 Urine Blood Sm (Negative) 08/11/20 19:04 Urine Nitrite Pos (Negative) 08/11/20 19:04 Urine Bilirubin Neg (Negative) 08/11/20 19:04 Urine Urobilinogen < 2.0 mg/dL (<2.0) 08/11/20 19:04 Ur Leukocyte Esterase Neg (Negative) 08/11/20 19:04 Urine WBC (Auto) 36.0 /HPF (0.0-6.0) H 08/11/20 19:04 Urine RBC (Auto) 34.0 /HPF (0.0-6.0) 08/11/20 19:04 U Epithel Cells (Auto) < 1.0 /HPF (0-13.0) 08/11/20 19:04 Urine Bacteria (Auto) 2+ /HPF (Negative) 08/11/20 19:04 Urine Mucus 2+ /HPF 08/11/20 19:04 Urine Yeast (Budding) 3+ /HPF 08/11/20 19:04 Microbiology: Microbiology 08/10/20 16:00 Peripheral/Venous Blood Culture - Preliminary NO GROWTH AFTER 4 DAYS 08/10/20 16:00 Peripheral/Venous Blood Culture - Preliminary NO GROWTH AFTER 4 DAYS Joseph/IV: Voiding Method Nephrostomy (Right) IV Catheter Type [Left Chest] Infusaport IV Catheter Type [Right Chest] Peripheral IV IV Catheter Type [Left INT / Saline Lock Antecubital] Active Medications - Current Medications Current Medications: Generic Name Dose Route Start Last Admin Trade Name Freq PRN Reason Stop Dose Admin Acetaminophen 650 mg 08/10/20 23:13 Tylenol PO Q4H PRN Pain MILD(1-3)/Fever >100.5/SOTO Famotidine 20 mg 08/10/20 23:45 08/14/20 22:32 Pepcid IV 20 mg BID MORIAH Administration Guaifenesin 10 ml 08/11/20 13:00 Guaifenesin Dm Syrup PO Q4H PRN Cough Heparin Sodium (Porcine) 5,000 unit 08/11/20 10:00 08/14/20 22:32 Heparin SUB-Q 5,000 unit Q12HR MORIAH Administration Dextrose 1,000 mls @ 75 mls/hr 08/14/20 13:00 08/14/20 15:14 D5w IV 75 mls/hr DIRECT MORIAH Administration Ceftriaxone Sodium 1 gm in 50 mls @ 100 mls/hr 08/15/20 10:00 Rocephin/Ns 1 Gm/50 Ml IV Q24HR MORIAH Protocol Calcium Chloride 1,000 mg/ 110 mls @ 660 mls/hr 08/15/20 07:59 Sodium Chloride IV 08/15/20 08:08 ONCE ONE Megestrol Acetate 400 mg 08/11/20 14:00 08/14/20 09:44 Megestrol PO 400 mg QDAY MORIAH Administration Metoclopramide HCl 10 mg 08/10/20 23:13 Reglan IV Q6H PRN Nausea And Vomiting Ondansetron HCl 4 mg 08/10/20 23:13 Zofran IV Q8H PRN Nausea And Vomiting Oxycodone/Acetaminophen 1 tab 08/10/20 23:13 08/14/20 16:09 Percocet 5/325 PO 1 tab Q6H PRN Administration Pain, Moderate (4-6) Potassium Chloride 40 meq 08/15/20 08:30 Potassium Chloride PO 08/15/20 14:00 ONCE@0830 NR Sodium Chloride 10 ml 08/11/20 10:00 08/14/20 22:32 Sodium Chloride Flush Syringe 10 Ml IV Not Given BID MORIAH Sodium Chloride 10 ml 08/10/20 23:13 Sodium Chloride Flush Syringe 10 Ml IV PRN PRN LINE FLUSH Sodium Hypochlorite 1 applic 08/11/20 10:00 08/14/20 22:32 Dakin's Half Strength TP 1 applic BID MORIAH Administration Nutrition/Malnutrition Assess - Dietary Evaluation Nutrition/Malnutrition Findings: Nutrition Notes Start: 08/11/20 11:57 Freq: Status: Active Protocol: Document 08/14/20 16:36 (Rec: 08/14/20 16:44 [id number]) Nutrition Notes Initial or Follow up Assessment Current Diagnosis Acute Kidney Injury,Decubitus( Pressure Ulcer),Diabetes, Sepsis,Hypertension, Hyperlipidemia Other Pertinent Diagnosis cerebral palsy, paraplegic, spinal stenosis, SIRS, UTI, metabolic acidosis Current Diet Pureed Labs/Tests Na 152 K 3 Pertinent Medications K-Dur 40 mEq D5w at 75 ml/hr Height 4 ft 8 in Weight 67.4 kg [place] Body Weight (kg) 36.36 BMI 33.3 Subjective/Other Information FU for speech eval. CONFIGURATION MANAGEMENT ADVISOR reports pureed with thin liquids. Pt reports not feeling hungry and not eating much. Pt unsure of weight history. Pt states she will try ONS but does not want Michael due to cost concerns. Burn Absent Trauma Absent Current % PO Negligible Minimum of two criteria No #2 Nutrition Diagnosis Increased nutrient needs ( specify in comment below) Comments: protein Etiology wound healing As Evidenced by Signs and Symptoms stage 4 ischium pressure injury #1 Nutrition Diagnosis Inadequate oral intake Etiology Decreased appeitite As Evidenced by Signs and Symptoms pt eating >25% of meals Is patient on ventilator? No Is Patient Ambulatory and/or Out of Bed No REE-([facility]-confined to bed) [phone] Calculation Used for Recommendations [facility] Additional Notes Pro: 65-78g (1.25-1.5 g/kg AdjBW 52 kg) Fluid: 1 ml/kcal Nutrition Intervention Change Diet Order: Continue current Add Supplement/Snack (indicate name/kcal Glucerna TID /protein ) Provides kCal: 660 Provides Protein (gm) 20 Goal #1 Meet at least 80% of protein and energy needs via PO and ONS intakes Goal #2 Wound healing Anticipated Discharge Needs: Pureed with ONS PRN Follow-Up By: 08/16/20 Additional Comments FU for intakes, Michael need reinforcement
[2020-08-15] MEDS ORDERED: POTASSIUM CHLORIDE 10 MEQ 10 MEQ/100 ML BAG IV SCH (08:30)
[2020-08-15] MEDS ORDERED: POTASSIUM CHLORIDE 20 MEQ PACKET PO NR (08:30)
[2020-08-15] MEDS: DEXTROSE 5% IN WATER 1,000 ML IV SCH (08:38)
[2020-08-15] MEDS ORDERED: CALCIUM CHLORIDE 1,000 MG in SODIUM CHLORIDE 0.9% 100 ML IV ONE (09:00)
[2020-08-15] MEDS: MEGESTROL 400 MG/10 ML ORAL LIQD PO SCH (10:10)
[2020-08-15] MEDS: HEPARIN 5,000 UNIT/1 ML VIAL SUB-Q SCH ×2 (10:12→21:25)
[2020-08-15] MEDS: FAMOTIDINE 20 MG/2 ML INJ IV SCH ×2 (10:12→21:24)
[2020-08-15] MEDS ORDERED: propofoL 200 MG/20 ML VIAL IV ONE ×4 (10:24→10:43)
[2020-08-15] MEDS ORDERED: HYDROmorphone 1 MG/1 ML INJ ONE (10:24)
[2020-08-15] MEDS ORDERED: MIDAZOLAM 2 MG/2 ML INJ ONE (10:24)
[2020-08-15] MEDS ORDERED: SODIUM CHLORIDE 0.9% 1000 ML 1,000 ML ONE (10:44)
[2020-08-15] MEDS: oxyCODONE /ACETAMINOPHEN 5-325MG TAB PO PRN ×2 (13:41→14:02)
--- NOTE | 2020-08-15 13:43 | Post Anesthesia Evaluation ---
- Post Anesthesia Evaluation Patient Participated: Yes Airway Patent: Yes Stable Respiratory Function: Yes Nausea/Vomiting: No Temp > 96.8F: Yes Pain Manageable: Yes Adequeate Hydration: Yes Anesthesia Complications: No
--- NOTE | 2020-08-15 13:43 | Anesthesia Day of Surgery ---
Anesthesia Day of Surgery - Day of Surgery Patient Examined: Yes Patient H&P Reviewed: Yes Patient is NPO: Yes
--- NOTE | 2020-08-15 13:43 | Anesthesia Consultation ---
Anesthesia Consult and Med Hx Date of service: 08/15/20 - Airway Anesthetic Teeth Evaluation: Poor ROM Head & Neck: Inadequate (significant restricted flexion) Mental/Hyoid Distance: Adequate Mallampati Class: Class III Intubation Access Assessment: Possibly Difficult - Pulmonary Exam CTA: Yes - Cardiac Exam Cardiac Exam: RRR - Pre-Operative Health Status ASA Pre-Surgery Classification: ASA3 Proposed Anesthetic Plan: MAC - Pulmonary Hx Respiratory Symptoms: Yes (presented initially with hypoxia; resolved) Hx Sleep Apnea: Yes - Cardiovascular System Hx Hypertension: Yes - Central Nervous System Hx Neuromuscular Disorder: Yes (CP, paraplegesia) Hx Seizures: Yes Hx Back Pain: Yes - Endocrine Hx Renal Disease: Yes (colostomy (last year) and urostomy tube (over 10yrs)) Hx Liver Disease: No Hx Insulin Dependent Diabetes: Yes - Hematic Hx Anemia: Yes - Other Systems Hx Obesity: Yes (BMI 33) - Additional Comments Anesthesia Medical History Comments: Admitted with hypoxia and altered mental status which has since resolved. Now scheduled for MRI brain. Anesthesia services consulted for assistance with sedation as patient is otherwise unable to tolerate imaging study.
--- NOTE | 2020-08-15 14:00 | Magnetic Resonance Report ---
MRA HEAD 08/15/2020 INDICATION / CLINICAL INFORMATION: ENCEPHALOPATHY. TECHNIQUE: Routine MRA of the head is performed. 3-D/MIP reformats postprocessed. COMPARISON: None available. FINDINGS: MRA HEAD: Intracranial internal carotid arteries: No significant abnormality. Anterior cerebral arteries: No significant abnormality. Middle cerebral arteries: No significant abnormality. Intracranial vertebral arteries: No significant abnormality. Basilar artery: No significant abnormality. Posterior cerebral arteries: No significant abnormality. IMPRESSION: No significant abnormality Signer Name: Todd Torres MD Signed: 08/15/2020 1:55 PM Workstation Name: [id number]
--- NOTE | 2020-08-15 14:05 | Magnetic Resonance Report ---
MRI BRAIN 08/15/2020 INDICATION / CLINICAL INFORMATION: ENCEPHALOPATHY. TECHNIQUE: Multiplanar, multisequence MR images of the brain were obtained. COMPARISON: None available. FINDINGS: BRAIN / INTRACRANIAL CONTENTS: Unenhanced and enhanced MR images of the brain were obtained. No previ ous studies are available here for comparison. Patient has had bilateral craniotomies, along with left-sided shunt placement. The left frontotempora l craniotomy site is associated with encephalomalacia in the anterior aspect of left temporal lobe. Right frontal anatomy side associated with a extra-axial fluid collection under the craniotomy defect , which has a maximum thickness of 1.9 cm. Focal encephalomalacia in the right frontal lobe and to le sser degree the left frontal lobe is present in this area. The ventricles are slitlike. The left-sided shunt tube appears to be entering the trigone of left lat eral ventricle. There is no evidence of acute ischemic injury, hemorrhage, or mass. Postcontrast images demonstrate no definite evidence of abnormal contrast enhancement. There is some dural thickening present at the craniotomy site in the right frontal region of left temporal region. There is also some dural thickening and enhancement in the vicinity of the left cavernous sinus and l jhonathan wing of the sphenoid. EXTRACRANIAL: Unremarkable CRANIOCERVICAL JUNCTION: No significant abnormality. VASCULAR FLOW-VOIDS: No significant abnormality. Patient has postoperative changes in the upper cervical spine, only peripherally included on these b rain images. IMPRESSION: Extensive bilateral postoperative change. Left-sided shunt tube. Slitlike small ventricles. Correlation with details of the patient's clinical circumstances and history and comparison with prio r studies is recommended for further evaluation. Signer Name: Todd Torres MD Signed: 08/15/2020 2:00 PM Workstation Name: [id number]
[2020-08-15] MEDS: POTASSIUM CHLORIDE 10 MEQ 10 MEQ/100 ML BAG IV SCH ×2 (17:09→19:22)
--- NOTE | 2020-08-15 17:22 | Consultation ---
History of Present Illness Consult date: 08/15/20 Reason for Consult: Encephalopathy History of present illness: History of present illness: 39-year-old female with a past medical history of cerebral palsy diabetes chronic paraplegia secondary to spinal stenosis and ankylosing spondylitis of the lumbosacral region who is presenting with some flat affect for the last 2 days. Mother states that she normally is somewhat talkative but now is just kind of lying very quiet and lethargic. There is been no nausea vomiting diarrhea. Mother states that it has been less output from her urostomy bag. Patient also has had some mild constipation but was given laxative from her home health nurse and she did have a bowel movement today. Home health nurse called the paramedics secondary to blood pressure 82/49. Patient was afebrile had a heart rate of 91. There is been no mention of any cough cold congestion or signs or symptoms of COVID-19. History Reviewed , per patient there is an improvement . No Seizures . Overall better . Past History Past Medical History: other (Cerebral palsy, ankylosing spondylitis, spinal stenosis, hydrocephalus, meningioma) Past Surgical History: abd. aortic aneurysm repair, Other (Colostomy, urostomy, [employer] shunt, cervical fusion, laminectomy) Social history: lives with family Family history: no significant family history Medications and Allergies Allergies Allergy/AdvReac Type Severity Reaction Status Date / Time amoxicillin trihydrate AdvReac Diarrhea Verified 10/19/18 08:09 [From Augmentin] potassium clavulanate AdvReac Diarrhea Verified 10/19/18 08:09 [From Augmentin] Home Medications Medication Instructions Recorded Confirmed Last Taken Type Nortriptyline HCl [Pamelor] 75 mg PO DAILY 07/15/18 08/10/20 01/11/19 History medroxyPROGESTERone ACETATE 150 mg IM QMONTH 07/15/18 08/10/20 07/15/18 09:00 History [Medroxyprogesterone Acetate] Acetaminophen [Acetaminophen TAB] 650 mg PO Q4H PRN tablet 07/24/18 08/10/20 Unknown Rx Fenofibrate 160 mg PO DAILY 10/17/18 08/10/20 01/11/19 History Gabapentin 100 mg PO DAILY 10/17/18 08/10/20 01/11/19 History Losartan [Cozaar] 25 mg PO QDAY 10/17/18 08/10/2001/11/19 History metFORMIN [Glucophage] 800 mg PO BID 10/17/18 08/10/20 01/11/19 History Ferrous Sulfate [Feosol 325 MG tab] 325 mg PO DAILY 01/12/19 08/10/20 01/11/19 History Metoprolol 25 mg PO DAILY 01/12/19 08/10/20 01/11/19 History Atenolol [Tenormin] 25 mg PO DAILY 08/10/20 08/10/20 Unknown History Lacosamide [Vimpat] 1 tab PO BID 08/10/20 08/10/20 Unknown History Lactulose 10 gram PO DAILY 08/10/20 08/10/20 Unknown History megestroL [Megestrol] 400 mg PO QDAY 30 Days oral.liqd 08/15/20 Unknown Rx oxyCODONE /ACETAMINOPHEN [Percocet 1 tab PO Q6H PRN #10 tablet 08/15/20 Unknown Rx 5/325 mg] Active Meds: Active Medications Acetaminophen (Tylenol) 650 mg PO Q4H PRN PRN Reason: Pain MILD(1-3)/Fever >100.5/SOTO Famotidine (Pepcid) 20 mg IV BID [facility] Last Admin: 08/15/20 10:12 Dose: 20 mg Documented by: Guaifenesin (Guaifenesin Dm Syrup) 10 ml PO Q4H PRN PRN Reason: Cough Heparin Sodium (Porcine) (Heparin) 5,000 unit SUB-Q Q12HR [facility] Last Admin: 08/15/20 10:12 Dose: 5,000 unit Documented by: Dextrose (D5w) 1,000 mls @ 75 mls/hr IV DIRECT [facility] Last Admin: 08/15/20 08:38 Dose: 75 mls/hr Documented by: Ceftriaxone Sodium (Rocephin/Ns 1 Gm/50 Ml) 1 gm in 50 mls @ 100 mls/hr IV Q24HR [facility]; Protocol Stop: 08/16/20 10:29 Megestrol Acetate (Megestrol) 400 mg PO QDAY [facility] Last Admin: 08/15/20 10:10 Dose: Not Given Documented by: Metoclopramide HCl (Reglan) 10 mg IV Q6H PRN PRN Reason: Nausea And Vomiting Ondansetron HCl (Zofran) 4 mg IV Q8H PRN PRN Reason: Nausea And Vomiting Oxycodone/Acetaminophen (Percocet 5/325) 1 tab PO Q6H PRN PRN Reason: Pain, Moderate (4-6) Last Admin: 08/15/20 14:02 Dose: 1 tab Documented by: Sodium Chloride (Sodium Chloride Flush Syringe 10 Ml) 10 ml IV BID [facility] Last Admin: 08/15/20 10:10 Dose: 10 ml Documented by: Sodium Chloride (Sodium Chloride Flush Syringe 10 Ml) 10 ml IV PRN PRN PRN Reason: LINE FLUSH Sodium Hypochlorite (Dakin's Half Strength) 1 applic TP BID [facility] Last Admin: 08/14/20 22:32 Dose: 1 applic Documented by: Physical Examination - Vital Signs Vital Signs: Vital Signs Pulse Ox 70 L 08/10/20 15:26 - Additional Exam Additional Exam: The patient is alert , moves upper extremity , finger to nose is normal , LE there is weakness, no obvious cranial nerve abnormality noted . Results - Laboratory Findings CBC and BMP: 08/12/20 15:41 08/15/20 05:00 Abnormal Lab Findings: Abnormal Labs 08/10/20 08/10/20 08/10/20 15:29 16:00 16:00 WBC RBC Hgb RDW 19.9 H [place] % (Auto) [place] # (Auto) Seg Neuts % (Manual) 72.0 H Lymphocytes % (Manual) 11.0 L Monocytes % (Manual) 11.0 H Lymphocytes # (Manual) 1.1 L Monocytes # (Manual) 1.1 H Sodium Potassium 5.7 H Chloride 110.9 H Carbon Dioxide 12 L BUN 29 H Creatinine Glucose POC Glucose Calcium 8.3 L Magnesium Troponin T 0.082 H Total Protein 5.4 L Albumin 2.3 L Triglycerides 498 H HDL Cholesterol 26 L Urine WBC (Auto) 41.0 H 08/10/20 08/11/20 08/11/20 16:00 04:41 04:41 WBC 11.4 H RBC 3.26 L Hgb 9.6 L RDW 20.3 H [place] % (Auto) [place] # (Auto) Seg Neuts % (Manual) Lymphocytes % (Manual) Monocytes % (Manual) Lymphocytes # (Manual) Monocytes # (Manual) Sodium Potassium 5.2 H Chloride 112.9 H Carbon Dioxide 14 L BUN 26 H Creatinine 0.3 L Glucose POC Glucose Calcium Magnesium 1.60 L Troponin T Total Protein 5.1 L Albumin 2.1 L Triglycerides HDL Cholesterol Urine WBC (Auto) 08/11/20 08/11/20 08/12/20 10:09 19:04 15:41 WBC RBC 3.58 L Hgb RDW 19.4 H [place] % (Auto) 14.3 H [place] # (Auto) 1.4 H Seg Neuts % (Manual) Lymphocytes % (Manual) Monocytes % (Manual) Lymphocytes # (Manual) Monocytes # (Manual) Sodium Potassium Chloride Carbon Dioxide BUN Creatinine Glucose POC Glucose 66 L Calcium Magnesium Troponin T Total Protein Albumin Triglycerides HDL Cholesterol Urine WBC (Auto) 36.0 H 08/12/20 08/14/20 08/15/20 15:41 08:28 05:00 WBC RBC Hgb RDW [place] % (Auto) [place] # (Auto) Seg Neuts % (Manual) Lymphocytes % (Manual) Monocytes % (Manual) Lymphocytes # (Manual) Monocytes # (Manual) Sodium 148 H 152 H 146 H Potassium 3.0 L 3.5 L Chloride 115.5 H 118.3 H 113.3 H Carbon Dioxide 17 L BUN Creatinine < 0.2 L < 0.2 L < 0.2 L Glucose 128 H 108 H 125 H POC Glucose Calcium 7.7 L 7.2 L 7.4 L Magnesium Troponin T Total Protein Albumin Triglycerides HDL Cholesterol Urine WBC (Auto) 08/15/20 12:59 WBC RBC Hgb RDW [place] % (Auto) [place] # (Auto) Seg Neuts % (Manual) Lymphocytes % (Manual) Monocytes % (Manual) Lymphocytes # (Manual) Monocytes # (Manual) Sodium Potassium Chloride Carbon Dioxide BUN Creatinine Glucose POC Glucose 109 H Calcium Magnesium Troponin T Total Protein Albumin Triglycerides HDL Cholesterol Urine WBC (Auto) Assessment and Plan - Patient Problems (1) Encephalopathy Current Visit: Yes Status: Acute Plan to address problem: 1. Improving Enecphalopthy 2. Reviewed MRI Brain - no evidence of Hydrocephalus 3. Continue all Home Medications 4. Needs a out patient neurology follow up . 5. Will call Patients Mother . Dr. Blas
[2020-08-15] MEDS: SODIUM HYPOCHLORITE, DAKIN'S 1/2 STRENGTH (0.25%) 473 ML TOPICAL SOLN TP SCH ×2 (18:25→21:23)
[2020-08-15] MEDS: cefTRIAXone/NS 1 GM/50 ML 1 GM/50 ML BAG IV SCH (19:21)
[2020-08-16] MEDS: DEXTROSE 5% IN WATER 1,000 ML IV SCH (05:52)
[2020-08-16] MEDS: FAMOTIDINE 20 MG/2 ML INJ IV SCH (09:25)
[2020-08-16] MEDS: HEPARIN 5,000 UNIT/1 ML VIAL SUB-Q SCH (09:25)
[2020-08-16] MEDS: MEGESTROL 400 MG/10 ML ORAL LIQD PO SCH (09:25)
[2020-08-16] MEDS: SODIUM HYPOCHLORITE, DAKIN'S 1/2 STRENGTH (0.25%) 473 ML TOPICAL SOLN TP SCH (09:26)
[2020-08-16] MEDS: cefTRIAXone/NS 1 GM/50 ML 1 GM/50 ML BAG IV SCH (09:26)
--- NOTE | 2020-08-16 11:58 | Discharge Summary ---
Providers - Providers Date of Admission: 08/10/20 17:40 Attending physician: ARMANDO RIVERA MD 08/11/20 08:11 Consult to Wound/ET Nurse [CONS] Routine Reason For Exam: wound eval 08/11/20 08:26 Speech Therapy Evaluation and Treat [CONS] Routine Reason For Exam: swallow eval 08/12/20 11:27 Consult to Physician [CONS] Routine Comment: Consulting Provider: GRACIELA FUNG Physician Instructions: Reason For Exam: access for [facility] fluids-port 08/15/20 08:05 Consult to Anesthesiology [CONS] Routine Consulting Provider: [facility] Reason For Exam: FOR MRI HEAD 08/15/20 08:41 Consult to Physician [CONS] Routine Comment: Consulting Provider: ETTA CASTELLANO Physician Instructions: Reason For Exam: AMS Primary care physician: [employer] Hospitalization Reason for admission: encephalopathy Condition: Stable Hospital course: 39-year-old female with a past medical history of cerebral palsy diabetes chronic paraplegia secondary to spinal stenosis and ankylosing spondylitis of the lumbosacral region who is presenting with some flat affect for the last 2 days. Mother states that she normally is somewhat talkative but now is just kind of lying very quiet and lethargic. There is been no nausea vomiting diarrhea. Mother states that it has been less output from her urostomy bag. Patient also has had some mild constipation but was given laxative from her home health nurse and she did have a bowel movement today. Home health nurse called the paramedics secondary to blood pressure 82/49. Patient was afebrile had a heart rate of 91. There is been no mention of any cough cold congestion or signs or symptoms of COVID-19. 12: Doubt UTI this may have been a contaminated urine. Will recheck, patient appears that she was dehydrated on admission. Her blood pressures improved with hydration. She does have significant more improved urine output. I will resend a urine culture with a more clean approach. And also urinalysis. I discussed with the mother will monitor patient for next any 4 hours we will add anticough syrup to her medication regimen. Anticipate discharge in a day or 2. Will monitor potassium to ensure improvement. 08/12: Continue supportive care clinically improving awaiting speech evaluation bedside speech evaluation will be done by nursing staff to start on pured diet. Following discussion with the mother put a consult to Dr. Fung for port placement as patient has had difficult stick and recurrent dehydration was recently hospitalized at [place] also. Mom is prefers to Dr. Antonieta Lam and Dr Nicolette jamison. Continue antibiotics were changed to p.o. While awaiting cultures 08/13: Patient was seen by speech therapist Pt was AAOx2. When presented with the tsp of puree, once pt began to move it toward back of oral cavity, her gag reflex was immediately triggered. Pt eventually swallowed bouls, pt refused any further solid presentations. Pt did however safely tolerate multiple consecutive swallows of thin liquid from a straw without overt s/s aspiration. Hyolaryngeal elevation appeared to be adequate. 08/14 patient is awake and alert and offers no specific complaints. She is bedbound from her cerebral palsy and try to reach patient's mother to give an update However message box is full and was unable to leave a message. Lab results reviewed. Not ready for discharge today. Possible discharge tomorrow 08/15: Patient clinically improved, electrolytes corrected. K 3.5, will give additional Kcl, 40meq PO and patient can be discharged. Patient will be discharged so that the patient can follow and Get MRI 08/16: Patient clinically stable and eating 50-75% diet. MRI: IMPRESSION: Extensive bilateral postoperative change. Left-sided shunt tube. Slitlike small ventricles. Correlation with details of the patient's clinical circumstances and history and comparison with prior studies is recom mended for further evaluation. MRI head:/ IMPRESSION: No significant abnormality Assessment and plan Encephalopathy, Metabolic Discussed Hypernatremia Secondary to volume depletion and dehydration/IV fluids with normal saline Will discontinue normal saline and start the patient on D5 water Repeat electrolytes in a.m. Hypokalemia Potassium supplements ordered Monitor electrolytes closely Acute cystitis Continue ceftriaxone but will decrease the dose to 1 g daily No evidence of Spesis No DOMI Hypoxia Improved Hypotension Improved History of hypertension Normotensive off medication Continue to hold off on home medications Type 2 diabetes Continue insulin sliding scale coverage Accu-Cheks reviewed History of cerebral palsy Supportive care Stage IV sacral decub Secondary to cerebral palsy Wound care Patient is scheduled for outpatient MRI tomorrow under sedation However will hold off her discharge today due to electrolyte abnormalities Disposition: - TO HOME OR SELFCARE Time spent for discharge: 35 MINS Core Measure Documentation - Palliative Care Palliative Care/ Comfort Measures: Not Applicable - Core Measures Any of the following diagnoses?: none Exam - Physical Exam Narrative exam: VITAL SIGNS: Reviewed. GENERAL: The patient appears normally developed, developmental delay vital signs as documented. HEAD: No signs of head trauma. EYES: Pupils are equal. Extraocular motions intact. EARS: Hearing grossly intact. MOUTH: Oropharynx is normal. NECK: No adenopathy, no JVD. CHEST: Chest with clear breath sounds bilaterally. No wheezes, rales, or rhonchi. CARDIAC: Regular rate and rhythm. S1 and S2, without murmurs, gallops, or rubs. VASCULAR: No Edema. Peripheral pulses normal and equal in all extremities. ABDOMEN: Soft, non tender and non distended. Colostomy and urostomy bag. Bowel Sounds normal. MUSCULOSKELETAL: Good range of motion of all major joints. Extremities without clubbing, cyanosis or edema. NEUROLOGIC EXAM: Alert and oriented x 3 No focal sensory or strength deficits. Speech normal. Follows commands. PSYCHIATRIC: Mood normal. SKIN: Chest port in place detail exam as documented in skin assessment - Constitutional Vitals: Temp Pulse Resp BP Pulse Ox 99.0 F 113 H 18 143/87 98 08/15/20 22:19 08/15/20 22:19 08/16/20 10:00 08/15/20 22:19 08/16/20 10:00 Plan Activity: advance as tolerated, fall precautions Diet: per dietitian instruction (pureed/Thin liquids) Special Instructions: record daily weights, record daily BP diary Additional Instructions: follow with primary neurologist. Continue with planned woundcare follow up Follow up with: PRIMARY MD FAUSTINO [Primary Care Provider] - 7 Days VIVIAN LAM MD [Staff Physician] - 7 Days Prescriptions: megestroL [Megestrol] 400 mg PO QDAY 30 Days oral.liqd oxyCODONE /ACETAMINOPHEN [Percocet 5/325 mg] 1 tab PO Q6H PRN #10 tablet PRN Reason: Pain, Moderate (4-6) Thiamine [Vitamin B-1] 100 mg PO QDAY #30 tablet
[2020-08-16] MEDS: oxyCODONE /ACETAMINOPHEN 5-325MG TAB PO PRN (14:38)
[2020-08-16 14:53] VITALS: BP 117/69
[2020-08-16] MEDS ORDERED: NEOMY 3.5 MG/BACIT 400 UNITS/POLY B 5000 UNITS/GM OINT PACKET TP NR (15:31)
== END 2020-08-16 17:26 | disposition home or self-care (01) | DRG 981 ==
LOC: ED 14:55 → 3A 17:40
PROVIDERS: ADMIT Internal Medicine; ATTEND Internal Medicine
PROC: 0JH60WZ Insertion of Totally Implantable Vascular Access Device into Chest Subcutaneous Tissue and Fascia, Open Approach (ICD-10-PCS; principal; 2020-08-13)
PROC: 02H633Z Insertion of Infusion Device into Right Atrium, Percutaneous Approach (ICD-10-PCS; 2020-08-13)
PROC: B5181ZA Fluoroscopy of Superior Vena Cava using Low Osmolar Contrast, Guidance (ICD-10-PCS; 2020-08-13)
PROC: B548ZZA Ultrasonography of Superior Vena Cava, Guidance (ICD-10-PCS; 2020-08-13)
DX: G93.41 Metabolic encephalopathy (principal); L89.154 Pressure ulcer of sacral region, stage 4; E87.2 Acidosis; E87.0 Hyperosmolality and hypernatremia; N30.00 Acute cystitis without hematuria; R65.10 Systemic inflammatory response syndrome (SIRS) of non-infectious origin without acute organ dysfunction; E86.0 Dehydration; E87.5 Hyperkalemia; G80.9 Cerebral palsy, unspecified; E87.6 Hypokalemia; I10 Essential (primary) hypertension; E11.9 Type 2 diabetes mellitus without complications; R09.02 Hypoxemia; M19.90 Unspecified osteoarthritis, unspecified site; Z98.1 Arthrodesis status; Z74.01 Bed confinement status; Z88.1 Allergy status to other antibiotic agents; Z88.8 Allergy status to other drugs, medicaments and biological substances; Z79.899 Other long term (current) drug therapy
CPT/HCPCS: 36415; 36561; 70544; 70553; 71045; 80048; 80053; 80061; 81001; 82140; 82550; 82962; 83036; 83735; 84484; 85007; 85025; 85730; 87040; 87086; 87116; 93005; 96361; 96365; 96366; 96367; 96368; 96375; G0378; A6250; A6260; A9577; C1788; J0610; J0696; J1170; J1642; J1644; J1815; J2250; J2704; J3010; J3480; J7030; J7050; J7070